=== PATIENT | female | born 1935 | race Caucasian/White ===

== ENCOUNTER → 2017-07-31 11:37 | Outpatient (CLI) | payer MEDICARE, SELFPAY | PROVIDERS: PCP Internal Medicine; Visit Provider Obstetrics & Gynecology | DX: R30.0 Dysuria (principal) | CPT/HCPCS: 87086; 87186 ==

== ENCOUNTER → 2017-08-12 12:22 | Outpatient (CLI) | payer MEDICARE, SELFPAY ==
[2017-08-12 12:32] LABS: RBC Urine None Seen (0-5/HPF)
[2017-08-12 12:51] LABS: Appearance Urine UA SL CLOUDY; Bilirubin Urine UA NEGATIVE (NEGATIVE); Color Urine UA YELLOW; Glucose Urine UA NEGATIVE (Normal); Ketones Urine UA NEGATIVE (NEGATIVE); Leukocyte Esterase Urine UA 1+ (NEGATIVE); Nitrite Urine UA Negative (Negative); Occult Blood Urine UA NEGATIVE (Negative); Protein Urine UA TRACE (Negative); Urobilinogen Urine UA 0.2 E.U./dL (0.2); pH Urine UA 6.5 (4.5-8.0)
[2017-08-12 12:58] LABS: Bacteria Urine Moderate (10-30); Culture Indicated Urine Cult Not Indicated; Squamous Epithelial Cell Urine 10-30 /HPF; WBC Urine 10-30/HPF (0-5/HPF)
== END ==
PROVIDERS: PCP Internal Medicine; Visit Provider Obstetrics & Gynecology
DX: R30.0 Dysuria (principal)
CPT/HCPCS: 81001

== ENCOUNTER → 2017-08-13 16:33 | Outpatient (CLI) | payer MEDICARE, SELFPAY | PROVIDERS: PCP Internal Medicine; Visit Provider Obstetrics & Gynecology | DX: R30.0 Dysuria (principal) | CPT/HCPCS: 87086 ==

== ENCOUNTER → 2017-12-12 14:23 | Outpatient (CLI) | payer MEDICARE, SELFPAY ==
[2017-12-12 14:31] LABS: Bacteria Urine None Seen; RBC Urine None Seen (0-5/HPF)
[2017-12-12 15:08] LABS: Hemoglobin A1C% w Est Avg Glu 6.4 % (4.0-6.0)
[2017-12-12 15:19] LABS: Appearance Urine UA CLOUDY; Bilirubin Urine UA NEGATIVE (NEGATIVE); Color Urine UA ORANGE; Glucose Urine UA 1+ g/dL (Normal); Ketones Urine UA TRACE (NEGATIVE); Leukocyte Esterase Urine UA 2+ (NEGATIVE); Nitrite Urine UA POSITIVE (Negative); Occult Blood Urine UA TRACE-LYSED (Negative); Protein Urine UA 3+ (Negative); pH Urine UA 6.5 (4.5-8.0)
[2017-12-12 15:20] LABS: Culture Indicated Urine Cult Not Indicated; Squamous Epithelial Cell Urine 10-30 /HPF; WBC Urine 30-100/HPF (0-5/HPF)
[2017-12-12 15:24] LABS: Blood Urea Nitrogen 21 mg/dL (7-17); Calcium 9.6 mg/dL (8.4-10.2); Carbon Dioxide 29 mmol/L (22-32); Chloride 99 mmol/L (98-107); Estimated Glomerular Filt Rate 53.3 mL/min (>60); Glucose 198 mg/dL (80-110); HEMOLYSIS < 15 (0-50); Potassium 3.8 mmol/L (3.4-5.1); Sodium 142 mmol/L (137-145)
[2017-12-12 15:39] LABS: Free T4, Direct Thyroxine 1.48 ng/dL (0.78-2.19)
[2017-12-12 15:53] LABS: Thyroid Stimulating Hormone 1.28 uIU/mL (0.47-4.68)
== END ==
PROVIDERS: PCP Internal Medicine; Visit Provider Internal Medicine
DX: E11.9 Type 2 diabetes mellitus without complications (principal); I10 Essential (primary) hypertension; E03.9 Hypothyroidism, unspecified; R30.0 Dysuria
CPT/HCPCS: 36415; 80048; 81001; 83036; 84439; 84443

== ENCOUNTER → 2018-01-02 16:34 | Outpatient (CLI) | payer MEDICARE, SELFPAY ==
[2018-01-02 18:53] LABS: Appearance Urine UA CLOUDY; Bilirubin Urine UA NEGATIVE (NEGATIVE); Glucose Urine UA TRACE g/dL (Normal); Ketones Urine UA TRACE (NEGATIVE); Leukocyte Esterase Urine UA 2+ (NEGATIVE); Nitrite Urine UA POSITIVE (Negative); Occult Blood Urine UA 2+ (Negative); Protein Urine UA 3+ (Negative)
[2018-01-02 18:57] LABS: Color Urine UA ORANGE; RBC Urine 5-10/HPF (0-5/HPF)
[2018-01-02 18:58] LABS: Bacteria Urine Many (>30); Culture Indicated Urine Specimen Cultured; Squamous Epithelial Cell Urine 0-1 /HPF; WBC Urine 30-100/HPF (0-5/HPF)
== END ==
PROVIDERS: PCP Internal Medicine; Visit Provider Internal Medicine
DX: R39.9 Unspecified symptoms and signs involving the genitourinary system (principal)
CPT/HCPCS: 81001; 87077; 87086; 87186

== ENCOUNTER → 2018-01-25 12:54 | Outpatient (CLI) | payer MEDICARE, SELFPAY | PROVIDERS: PCP Internal Medicine; Visit Provider Physician Assistant | DX: N39.0 Urinary tract infection, site not specified (principal) | CPT/HCPCS: 87077; 87086; 87186 ==

== ENCOUNTER → 2018-02-11 14:06 | Outpatient (CLI) | payer MEDICARE, SELFPAY ==
[2018-02-11 14:09] LABS: RBC Urine None Seen (0-5/HPF)
[2018-02-11 16:19] LABS: Appearance Urine UA CLOUDY; Bilirubin Urine UA NEGATIVE (NEGATIVE); Color Urine UA ORANGE; Glucose Urine UA TRACE g/dL (Normal); Ketones Urine UA NEGATIVE (NEGATIVE); Leukocyte Esterase Urine UA 1+ (NEGATIVE); Nitrite Urine UA POSITIVE (Negative); Occult Blood Urine UA 1+ (Negative); Protein Urine UA 2+ (Negative); Specific Gravity Urine UA 1.025 (1.000-1.035); Urobilinogen Urine UA 0.2 E.U./dL (0.2)
[2018-02-11 16:43] LABS: Squamous Epithelial Cell Urine 0-1 /HPF; WBC Urine 30-100/HPF (0-5/HPF)
[2018-02-11 16:44] LABS: Bacteria Urine Moderate (10-30); Calcium Oxalate Crystals Urine Moderate; Culture Indicated Urine Specimen Cultured
== END ==
PROVIDERS: PCP Internal Medicine; Visit Provider Obstetrics & Gynecology
DX: R30.0 Dysuria (principal)
CPT/HCPCS: 81001; 87077; 87086; 87186

== ENCOUNTER → 2018-06-05 13:44 | Outpatient (CLI) | payer MEDICARE, SELFPAY ==
[2018-06-05 14:24] LABS: Appearance Urine UA SL CLOUDY; Bilirubin Urine UA NEGATIVE (NEGATIVE); Glucose Urine UA TRACE g/dL (Negative); Ketones Urine UA NEGATIVE (NEGATIVE); Leukocyte Esterase Urine UA 1+ (NEGATIVE); Nitrite Urine UA POSITIVE (Negative); Occult Blood Urine UA TRACE-INTACT (Negative); Protein Urine UA 3+ (Negative); Specific Gravity Urine UA 1.025 (1.000-1.035)
[2018-06-05 14:32] LABS: Color Urine UA OTHER
[2018-06-05 14:33] LABS: Amorphous Sediment Urine 1+; Bacteria Urine Moderate (10-30); Culture Indicated Urine Specimen Cultured; Mucus Urine 1+ (Negative); RBC Urine 0-1/HPF (0-5/HPF); Squamous Epithelial Cell Urine 1-5 /HPF; Transitional Epi Cells Urine 0-1/HPF (0-5/HPF); WBC Urine 30-100/HPF (0-5/HPF)
== END ==
PROVIDERS: PCP Internal Medicine; Visit Provider Internal Medicine
DX: R30.0 Dysuria (principal)
CPT/HCPCS: 81001; 87077; 87086; 87186

== ENCOUNTER → 2018-06-27 15:30 | Outpatient (CLI) | payer MEDICARE, SELFPAY ==
[2018-06-27 16:16] LABS: Hemoglobin A1C% w Est Avg Glu 5.8 % (4.0-6.0)
[2018-06-27 16:42] LABS: Blood Urea Nitrogen 24 mg/dL (7-17); Calcium 9.8 mg/dL (8.4-10.2); Carbon Dioxide 25 mmol/L (22-32); Chloride 101 mmol/L (98-107); Estimated Glomerular Filt Rate 53.3 mL/min (>60); Glucose 133 mg/dL (80-110); HEMOLYSIS 49 (0-50); Potassium 4.6 mmol/L (3.4-5.1); Sodium 139 mmol/L (137-145)
== END ==
PROVIDERS: PCP Internal Medicine; Visit Provider Internal Medicine
DX: E11.65 Type 2 diabetes mellitus with hyperglycemia (principal)
CPT/HCPCS: 36415; 80048; 83036

== ENCOUNTER 2018-07-25 12:45 | Emergency (ER) | payer MEDICARE, SELFPAY ==
[2018-07-25 13:00] VITALS: BP 142/81; PULSE 97; RESP 18; TEMP 36.9; O2SAT 98
--- NOTE | 2018-07-25 13:09 | DI.RAD.S_ITS ---
PROCEDURE: XR LUMBAR SPINE 2-3V INDICATIONS: fall TECHNIQUE: 3 views of the lumbar spine were acquired. COMPARISON: [facility], , L-SPINE WITHOUT CONTRAST, 09/04/2016, 15:44. FINDINGS: Bones: 5 [id number] vertebrae are present. There is levoscoliosis of the thoracolumbar spine centered at L2-L3. There is grade 2 anterolisthesis at L4-5 measuring approximately 9 mm although the L5 endplate is not well visualized. There is also mild grade 1 anterolisthesis at L5-S1. This appears slightly increased compared to the prior MRI. There is multilevel degenerative disc disease including moderate degeneration at L4-5. Multilevel facet arthropathy is also demonstrated most prominent in the lower lumbar spine at L4-5. No vertebral body compression fractures. No suspicious bony lesions. Soft tissues: Overlying bowel gas pattern is normal. No suspicious soft tissue calcifications. IMPRESSION: 1. No definite fractures identified. 2. Grade 2 anterolisthesis at L4-5 appears slightly increased from the prior study. Mild grade 1 anterolisthesis at L5-S1 appears similar to the prior study. 3. Multilevel degenerative disc disease and facet arthropathy redemonstrated most prominent at L4-5. Dictated by: Kwaku Ball M.D. on 07/25/2018 at 14:12 Approved by: Kwaku Ball M.D. on 07/25/2018 at 14:21
--- NOTE | 2018-07-25 13:09 | DI.RAD.S_ITS ---
PROCEDURE: XR THORACIC SPINE 2V INDICATIONS: fall TECHNIQUE: 3 views of the thoracic spine were acquired. COMPARISON: None. FINDINGS: Bones: Evaluation limited by motion artifact on the lateral projection. No definite fractures or subluxation. There is mild multilevel degenerative disc disease throughout the thoracic spine. No suspicious bony lesions. 12 pairs of ribs are noted, and appear intact where visualized. Soft tissues: No paravertebral stripe thickening. IMPRESSION: 1. Slightly limited study demonstrates no definite fracture. Dictated by: Kwaku Ball M.D. on 07/25/2018 at 14:10 Approved by: Kwaku Ball M.D. on 07/25/2018 at 14:12
--- NOTE | 2018-07-25 13:09 | DI.RAD.S_ITS ---
PROCEDURE: XR CHEST 2V INDICATIONS: fall TECHNIQUE: 2 views of the chest were acquired. COMPARISON: [facility], , CHEST 1 VIEW, 09/26/2016, 8:01. FINDINGS: Surgical changes and devices: None. Lungs and pleura: Lungs are clear. No pleural effusions or pneumothorax. Mediastinum: Mediastinal contours are normal. Heart size is normal. Bones and chest wall: No suspicious bony abnormalities. No displaced fracture identified. Soft tissues appear unremarkable. IMPRESSION: 1. No definite acute traumatic abnormality. Dictated by: Kwaku Ball M.D. on 07/25/2018 at 14:22 Approved by: Kwaku Ball M.D. on 07/25/2018 at 14:22
--- NOTE | 2018-07-25 13:16 | ED.BACK ---
HPI - Back Pain/Injury <Madelaine Potts, SENIOR DIRECTOR [employer] - Last Filed: 07/25/18 15:35> General Chief Complaint: Back Pain/Injury Stated Complaint: fall week a ago, back and R side pain now,worse Time Seen by Provider: 07/25/18 13:00 Source: patient and family Mode of arrival: ambulatory Limitations: no limitations History of Present Illness HPI Narrative: The patient is is an 10-year-old female presents with for chief complaint of back and right side pain since a fall at least 1 week ago. She states she is not exactly sure of the date she fell, but knows it was before the . She did not hit her head. She denies any loss of consciousness. She feels as though her fall was related to her neuropathy which is chronic and related to her diabetes. She states that her pain is in the lower right side of her back. She is also complaining of dysuria and urgency. She denies any incontinence of bowel or bladder. She denies any new numbness. She states she has been taking her oxycodone as well as her Tylenol threes which have been helping with the pain. Pain is worse with motion and twisting. It is improved with rest. The pain does not radiate anywhere. Related Data Home Medications Medication Instructions Recorded Confirmed Calcium Carbonate/Vitamin D 1 tab PO BID #0 06/25/11 07/01/18 (#CALCIUM 600 W/VITAMIN D) VITAMIN B COMPLEX 1 cap PO Q DAY #0 06/25/11 07/01/18 diphenhydramine 25 mg capsule 25 mg PO BEDTIME PRN 09/13/17 07/01/18 docusate sodium 50 mg capsule 50 mg PO DAILY 09/13/17 07/01/18 Previous Rx's Medication Instructions Recorded Glucose: Home Monitoring Kit kit #1 11/18/12 Diabetic Shoes ea #1 08/02/16 clobetasol 0.05 % topical cream 1 applictn TOP BIDP PRN #45 gram 09/05/17 CMP Estrial 0.2? See Rx Instructions .ROUTE 09/06/17 .COMPLEX #30 gram estradiol 0.01% (0.1 mg/gram) 0.1 % VAG DAILY #42.5 gram 09/06/17 vaginal cream Glucose: Test Strips #150 each 12/03/18 metformin 500 mg tablet 500 mg PO BID #60 tab 03/12/18 atorvastatin 40 mg tablet 40 mg PO QDAY #90 tab 03/20/18 levothyroxine 50 mcg tablet 50 mcg PO QAM #90 tab 03/20/18 acetaminophen 300 mg-codeine 30 mg 1 - 2 tab PO Q4H PRN #180 tab 05/05/18 tablet Lancets #250 each 05/06/18 nitrofurantoin 100 mg PO BID #60 cap 06/06/18 monohydrate/macrocrystals 100 mg capsule oxycodone 5 mg tablet 5 mg PO Q4-6H PRN #90 tab 07/01/18 cyclobenzaprine 5 mg tablet 5 mg PO TID PRN #90 tab 07/24/18 eszopiclone 3 mg tablet 3 mg PO BEDTIME PRN #30 tab 07/24/18 cyclobenzaprine 5 mg PO TID PRN #30 tab 07/25/18 nitrofurantoin macrocrystal 100 mg PO BID #20 cap 07/25/18 Allergies Allergy/AdvReac Type Severity Reaction Status Date / Time ciprofloxacin [CIPROFLOXACIN] Allergy Intermediate LEG Verified 07/01/18 13:50 PAIN/SWELLING adhesive [ADHESIVE] Allergy Mild TAPE Verified 07/01/18 13:50 bacitracin Allergy Mild Verified 07/01/18 13:50 [From NEOSPORIN + PAIN RELIEF] neomycin Allergy Mild Verified 07/01/18 13:50 [From NEOSPORIN + PAIN RELIEF] polymyxin B Allergy Mild Verified 07/01/18 13:50 [From NEOSPORIN + PAIN RELIEF] pramoxine Allergy Mild Verified 07/01/18 13:50 [From NEOSPORIN + PAIN RELIEF] Sulfa (Sulfonamide Allergy Mild Verified 07/01/18 13:50 Antibiotics) [SULFA (SULFONAMIDE ANTIBIOTICS)] meclizine [MECLIZINE] Allergy Unknown Verified 07/01/18 13:50 NSAIDS (Non-Steroidal Allergy Unknown Verified 07/01/18 13:50 Anti-Inflamma [NSAIDS (NON-STEROIDAL ANTI-INFLAMMA] quetiapine [QUETIAPINE] AdvReac Intermediate SHAKY, Verified 07/01/18 13:50 UNWELL amoxicillin [AMOXICILLIN] AdvReac Mild SENSE OF Verified 07/01/18 13:50 DOOM, clavulanic acid AdvReac Mild SENSE OF Verified 07/01/18 13:50 [CLAVULANIC ACID] DOOM, Review of Systems <Madelaine Potts [facility] - Last Filed: 07/25/18 15:35> Review of Systems GENERAL: Denies chills, fatigue, malaise, fever, sweats. HEENT: Denies sinus pain, ear pain, sore throat, difficulty swallowing, dizziness. RESPIRATORY: Denies dyspnea, cough, wheezing, hemoptysis, sputum. CARDIOVASCULAR: Denies chest pain, palpitations, orthopnea, edema, GASTROINTESTINAL: Denies nausea, vomiting, abdominal pain, diarrhea, constipation, melena. : Denies dysuria, frequency, incontinence, hematuria, urinary retention. MUSCULOSKELETAL: See HPI SKIN: Denies rash, skin lesions, or other NEUROLOGIC: See HPI PSYCHIATRIC: No concerning psychosocial issues. 12 point review of systems is negative except for those stated above PFSH <Madelaine Potts [facility] - Last Filed: 07/25/18 15:35> Social History Smoking Status: Never smoker Exam <Madelaine Potts [facility] - Last Filed: 07/25/18 15:35> Narrative Exam Narrative: GENERAL: This is a well-nourished, well-developed patient, moving gingerly HEAD: Atraumatic. Normocephalic. No temporal or scalp tenderness. EYES: Pupils equal round and reactive. Extraocular motions intact. No scleral icterus. No injection or drainage. ENT: Nose without bleeding, purulent drainage or septal hematoma. Throat without erythema, tonsillar hypertrophy or exudate. Uvula midline. Airway patent. NECK: Trachea midline. No JVD or lymphadenopathy. Supple, nontender, no meningeal signs. CARDIOVASCULAR: Regular rate and rhythm without murmurs, gallops, or rubs. RESPIRATORY: Clear to auscultation. Breath sounds equal bilaterally. No wheezes, rales, or rhonchi. No cough. No increased respiratory effort. GASTROINTESTINAL: Abdomen soft, non-tender, nondistended. No hepato-splenomegaly, or palpable masses. No guarding. Active bowel sounds. EXTREMITIES: No clubbing, cyanosis, or edema. No joint tenderness, effusion, or edema noted. Strength is equal upper and lower extremities bilaterally. BACK: No pain to C-spine or spinal palpation. Nontender without deformity or crepitance. Pain to palpation paraspinal muscles right side lumbar spine SKIN: No rash or erythema. No erythema ecchymosis or rash or abrasion noted right lower back Initial Vital Signs Initial Vital Signs: Vital Signs Temperature 98.4 F 07/25/18 13:00 Pulse Rate 97 H 07/25/18 13:00 Respiratory Rate 18 07/25/18 13:00 Blood Pressure 142/81 H 07/25/18 13:00 Pulse Oximetry 98 07/25/18 13:00 <Mary Rosa DO - Last Filed: 07/26/18 15:24> Initial Vital Signs Initial Vital Signs: Vital Signs Temperature 98.4 F 07/25/18 13:00 Pulse Rate 97 H 07/25/18 13:00 Respiratory Rate 18 07/25/18 13:00 Blood Pressure 142/81 H 07/25/18 13:00 Pulse Oximetry 98 07/25/18 13:00 Course <SHIRLEY Benedict - Last Filed: 07/25/18 15:35> Orders Ordered: Discontinued Medications Cyclobenzaprine HCl (Flexeril) 5 mg PO NOW ONE Stop: 07/25/18 13:43 Last Admin: 07/25/18 14:10 Dose: 5 mg Vital Signs - 8 hr 07/25/18 13:00 07/25/18 15:19 Temperature 98.4 F Pulse Rate 97 H 91 H Respiratory Rate 18 16 Blood Pressure 142/81 H Blood Pressure [Right Arm] 113/66 Pulse Oximetry 98 100 <Mary Rosa DO - Last Filed: 07/26/18 15:24> Orders Ordered: Discontinued Medications Cyclobenzaprine HCl (Flexeril) 5 mg PO NOW ONE Stop: 07/25/18 13:43 Last Admin: 07/25/18 14:10 Dose: 5 mg Vital Signs - 8 hr 07/25/18 13:00 07/25/18 15:19 Temperature 98.4 F Pulse Rate 97 H 91 H Respiratory Rate 18 16 Blood Pressure 142/81 H Blood Pressure [Right Arm] 113/66 Pulse Oximetry 98 100 MDM - Back Pain/Injury <SHIRLEY Benedict - Last Filed: 07/25/18 15:35> Lab Data Lab Results 07/25/18 Range/Units 13:40 Urine Color Yellow Urine Appearance Cloudy Urine pH 5.5 (4.5-8.0) Ur Specific [place] 1.025 (1.000-1.035) Urine Protein 3+ H (Negative) Urine Glucose (UA) Trace H (Negative) g/dL Urine Ketones Trace H (NEGATIVE) Urine Occult Blood 2+ H (Negative) Urine Nitrate Positive H (Negative) Urine Bilirubin 1+ H (NEGATIVE) Urine Ictotest Negative (Negative) Urine Urobilinogen 1.0 (0.2) E.U./dL Ur Leukocyte Esterase 2+ H (NEGATIVE) Urine RBC 1-5/hpf (0-5/HPF) Urine WBC >100/hpf H (0-5/HPF) Ur Squamous Epith Cells 1-5 /hpf (0-5/HPF) Calcium Oxalate Crystal Few H Urine Bacteria Few (2-10) H (None) Ur Culture Indicated? Specimen cultured Imaging Data Chest x-ray: Radiologist's impression: [address] [address] XRay Report Signed Patient: Anita Bellleen KMR#: [id number] : 1935cct:[id number] Age/Sex: 82 / FDate of Service: 07/25/18 Loc: ED Accession Number: [id number] Procedure: XR chest 2V Ordering Provider: Madelaine Potts PROCEDURE: XR CHEST 2V INDICATIONS: fall TECHNIQUE: 2 views of the chest were acquired. COMPARISON: [facility], , CHEST 1 VIEW, 09/26/2016, 8:01. FINDINGS: Surgical changes and devices: None. Lungs and pleura: Lungs are clear. No pleural effusions or pneumothorax. Mediastinum: Mediastinal contours are normal. Heart size is normal. Bones and chest wall: No suspicious bony abnormalities. No displaced fracture identified. Soft tissues appear unremarkable. IMPRESSION: 1. No definite acute traumatic abnormality. Dictated by: Kwaku Ball M.D. on 07/25/2018 at 14:22 Approved by: Kwaku Ball M.D. on 07/25/2018 at 14:22 Lumbar x-ray: Radiologist's impression: Crystal Bell K 82 F [address] [address] XRay Report Signed Patient: BellCrystal KMR#: [id number] : 1935cct:[id number] Age/Sex: 82 / FDate of Service: 07/25/18 Loc: ED Accession Number: [id number] Procedure: XR lumbar spine 2-3V Ordering Provider: Madelaine Potts PROCEDURE: XR LUMBAR SPINE 2-3V INDICATIONS: fall TECHNIQUE: 3 views of the lumbar spine were acquired. COMPARISON: [facility], , L-SPINE WITHOUT CONTRAST, 09/04/2016, 15:44. FINDINGS: Bones: 5 [id number]-[id number]-xllzzzs vertebrae are present. There is levoscoliosis of the thoracolumbar spine centered at L2-L3. There is grade 2 anterolisthesis at L4-5 measuring approximately 9 mm although the L5 endplate is not well visualized. There is also mild grade 1 anterolisthesis at L5-S1. This appears slightly increased compared to the prior MRI. There is multilevel degenerative disc disease including moderate degeneration at L4-5. Multilevel facet arthropathy is also demonstrated most prominent in the lower lumbar spine at L4-5. No vertebral body compression fractures. No suspicious bony lesions. Soft tissues: Overlying bowel gas pattern is normal. No suspicious soft tissue calcifications. IMPRESSION: 1. No definite fractures identified. 2. Grade 2 anterolisthesis at L4-5 appears slightly increased from the prior study. Mild grade 1 anterolisthesis at L5-S1 appears similar to the prior study. 3. Multilevel degenerative disc disease and facet arthropathy redemonstrated most prominent at L4-5. Dictated by: Kwaku Ball M.D. on 07/25/2018 at 14:12 Approved by: Kwaku Ball M.D. on 07/25/2018 at 14:21 T spine x-ray: Radiologist's impression: Crystal Bell K 82 F 1935 [place] [address] XRay Report Signed Patient: Crystal Bell KMR#: [id number] : 8Acct:[id number] Age/Sex: 82 / FDate of Service: 07/25/18 Loc: ED Accession Number: [id number] Procedure: XR thoracic spine 2V Ordering Provider: Katlyn,Madelaine [employer]IOR [employer] PROCEDURE: XR THORACIC SPINE 2V INDICATIONS: fall TECHNIQUE: 3 views of the thoracic spine were acquired. COMPARISON: None. FINDINGS: Bones: Evaluation limited by motion artifact on the lateral projection. No definite fractures or subluxation. There is mild multilevel degenerative disc disease throughout the thoracic spine. No suspicious bony lesions. 12 pairs of ribs are noted, and appear intact where visualized. Soft tissues: No paravertebral stripe thickening. IMPRESSION: 1. Slightly limited study demonstrates no definite fracture. Dictated by: Kwaku Ball M.D. on 07/25/2018 at 14:10 Approved by: Kwaku Ball M.D. on 07/25/2018 at 14:12 [facility] Narrative Medical decision making narrative: The patient is an 82-year-old female who presents with chief complaint of back pain. She is at least a week out of a fall, which she states was due to her neuropathy. She denies any red flag symptoms of incontinence of bowel, incontinence of bladder or numbness. Her x-rays showed no acute fracture, we did discuss degenerative changes that are worsening. She does have a UTI, so I will start Macrobid. She states she has not taken that for several months and her last culture show susceptibility. I discussed at length return precautions of incontinence male, incontinence of bladder, numbness or neurological concerns. Encouraged follow-up with primary care provider. She remains nontoxic appearing and hemodynamically stable throughout her stay in the emergency department. She did not have any questions or concerns on discharge. Urine culture is pending at this time. <Mary Rosa, DO - Last Filed: 07/26/18 15:24> Lab Data Lab Results 07/25/18 Range/Units 13:40 Urine Color Yellow Urine Appearance Cloudy Urine pH 5.5 (4.5-8.0) Ur Specific [place] 1.025 (1.000-1.035) Urine Protein 3+ H (Negative) Urine Glucose (UA) Trace H (Negative) g/dL Urine Ketones Trace H (NEGATIVE) Urine Occult Blood 2+ H (Negative) Urine Nitrate Positive H (Negative) Urine Bilirubin 1+ H (NEGATIVE) Urine Ictotest Negative (Negative) Urine Urobilinogen 1.0 (0.2) E.U./dL Ur Leukocyte Esterase 2+ H (NEGATIVE) Urine RBC 1-5/hpf (0-5/HPF) Urine WBC >100/hpf H (0-5/HPF) Ur Squamous Epith Cells 1-5 /hpf (0-5/HPF) Calcium Oxalate Crystal Few H Urine Bacteria Few (2-10) H (None) Ur Culture Indicated? Specimen cultured Discharge Plan Departure Patient Disposition: Home Clinical Impression: Acute UTI, Fall from ground level Back pain Qualifiers: Back pain location: low back pain Chronicity: acute Back pain laterality: right Sciatica presence: without sciatica Qualified Code(s): M54.5 - Low back pain Discharge Date/Time: 07/25/18 15:28 Interventions: ED Discharge Assessment Last Done: 07/25/18 15:27 Instructions: DI for Low Back Pain, DI for Urinary Tract Infection (UTI), DI for Back Spasm Activity Restrictions/Additional Instructions: Your x-rays came back with no new fractures or Urology. You do have a UTI. I am starting treatment with an antibiotic. I have also given you prescription for some Flexeril, which have used before. Be aware it can be sedating. Please monitor for any incontinence of bowel, incontinence of bladder or numbness. Please be evaluated if any of these occur. Please also monitor for worsening urinary symptoms, flank pain and fever. Please be evaluated if any of these occur. Please come back to emergency department for any acute concerns. Please follow up with primary care provider. Prescriptions: New nitrofurantoin macrocrystal 100 mg capsule 100 mg PO BID Qty: 20 RF: 0 cyclobenzaprine 5 mg tablet 5 mg PO TID PRN (Reason: muscle spasm) Qty: 30 RF: 0 No Action Calcium Carbonate/Vitamin D (#CALCIUM 600 W/VITAMIN D) 1 tab PO BID Qty: 0 RF: 0 VITAMIN B COMPLEX 1 cap PO Q DAY Qty: 0 RF: 0 Glucose: Home Monitoring Kit Qty: 1 RF: 0 Diabetic Shoes Qty: 1 RF: PRN clobetasol [Temovate] 0.05 % cream 1 applictn TOP BIDP PRN (Reason: rash) Qty: 45 RF: 11 estradiol [Estrace] 0.01 % (0.1 mg/gram) cream 0.1 % VAG DAILY Qty: 42.5 RF: 3 CMP Estrial 0.2? See Rx Instructions .ROUTE .COMPLEX Qty: 30 RF: 3 Glucose: Test Strips .Route .MEDSUPPLY Qty: 150 RF: 11 metformin [Glucophage] 500 mg tablet 500 mg PO BID Qty: 60 RF: 11 atorvastatin 40 mg tablet 40 mg PO QDAY Qty: 90 RF: 3 levothyroxine [Synthroid] 50 mcg tablet 50 mcg PO QAM Qty: 90 RF: 3 Lancets .Route .MEDSUPPLY Qty: 250 RF: 11 nitrofurantoin monohyd/m-cryst 100 mg capsule 100 mg PO BID Qty: 60 RF: 0 cyclobenzaprine 5 mg tablet 5 mg PO TID PRN (Reason: muscle spasm) Qty: 90 RF: 0 eszopiclone [Lunesta] 3 mg tablet 3 mg PO BEDTIME PRN (Reason: insomnia) Qty: 30 RF: 0 oxycodone 5 mg tablet 5 mg PO Q4-6H PRN (Reason: pain) Qty: 90 RF: 0 docusate sodium [Stool Softener] 50 mg capsule 50 mg PO DAILY RF: 0 diphenhydramine HCl [Benadryl] 25 mg capsule 25 mg PO BEDTIME PRNRF: 0 acetaminophen-codeine 300-30 mg tablet 1 - 2 tab PO Q4H PRN (Reason: pain) Qty: 180 RF: 0 Referrals: Kurt Kelly MD [Primary Care Provider] - <Mary Rosa DO - Last Filed: 07/26/18 15:24> Cosign ED Attending Soniya Attestation: I was immediately available in the department for consultation. Documentation has been reviewed. I agree with assessment and plan.
--- NOTE | 2018-07-25 13:22 | ED_ITS ---
HPI - Back Pain/Injury <Madelaine Potts, [employer] - Last Filed: 07/25/18 15:35> General Chief Complaint: Back Pain/Injury Stated Complaint: fall week a ago, back and R side pain now,worse Time Seen by Provider: 07/25/18 13:00 Source: patient and family Mode of arrival: ambulatory Limitations: no limitations History of Present Illness HPI Narrative: The patient is is an 10-year-old female presents with for chief complaint of back and right side pain since a fall at least 1 week ago. She states she is not exactly sure of the date she fell, but knows it was before the . She did not hit her head. She denies any loss of consciousness. She feels as though her fall was related to her neuropathy which is chronic and related to her diabetes. She states that her pain is in the lower right side of her back. She is also complaining of dysuria and urgency. She denies any incontinence of bowel or bladder. She denies any new numbness. She states she has been taking her oxycodone as well as her Tylenol threes which have been helping with the pain. Pain is worse with motion and twisting. It is improved with rest. The pain does not radiate anywhere. Related Data Home Medications Medication Instructions Recorded Confirmed Calcium Carbonate/Vitamin D 1 tab PO BID #0 06/25/11 07/01/18 (#CALCIUM 600 W/VITAMIN D) VITAMIN B COMPLEX 1 cap PO Q DAY #0 06/25/11 07/01/18 diphenhydramine 25 mg capsule 25 mg PO BEDTIME PRN 09/13/17 07/01/18 docusate sodium 50 mg capsule 50 mg PO DAILY 09/13/17 07/01/18 Previous Rx's Medication Instructions Recorded Glucose: Home Monitoring Kit kit #1 11/18/12 Diabetic Shoes ea #1 08/02/16 clobetasol 0.05 % topical cream 1 applictn TOP BIDP PRN #45 gram 09/05/17 CMP Estrial 0.2? See Rx Instructions .ROUTE 09/06/17 .COMPLEX #30 gram estradiol 0.01% (0.1 mg/gram) 0.1 % VAG DAILY #42.5 gram 09/06/17 vaginal cream Glucose: Test Strips #150 each 12/03/18 metformin 500 mg tablet 500 mg PO BID #60 tab 03/12/18 atorvastatin 40 mg tablet 40 mg PO QDAY #90 tab 03/20/18 levothyroxine 50 mcg tablet 50 mcg PO QAM #90 tab 03/20/18 acetaminophen 300 mg-codeine 30 mg 1 - 2 tab PO Q4H PRN #180 tab 05/05/18 tablet Lancets #250 each 05/06/18 nitrofurantoin 100 mg PO BID #60 cap 06/06/18 monohydrate/macrocrystals 100 mg capsule oxycodone 5 mg tablet 5 mg PO Q4-6H PRN #90 tab 07/01/18 cyclobenzaprine 5 mg tablet 5 mg PO TID PRN #90 tab 07/24/18 eszopiclone 3 mg tablet 3 mg PO BEDTIME PRN #30 tab 07/24/18 cyclobenzaprine 5 mg PO TID PRN #30 tab 07/25/18 nitrofurantoin macrocrystal 100 mg PO BID #20 cap 07/25/18 Allergies Allergy/AdvReac Type Severity Reaction Status Date / Time ciprofloxacin [CIPROFLOXACIN] Allergy Intermediate LEG Verified 07/01/18 13:50 PAIN/SWELLING adhesive [ADHESIVE] Allergy Mild TAPE Verified 07/01/18 13:50 bacitracin Allergy Mild Verified 07/01/18 13:50 [From NEOSPORIN + PAIN RELIEF] neomycin Allergy Mild Verified 07/01/18 13:50 [From NEOSPORIN + PAIN RELIEF] polymyxin B Allergy Mild Verified 07/01/18 13:50 [From NEOSPORIN + PAIN RELIEF] pramoxine Allergy Mild Verified 07/01/18 13:50 [From NEOSPORIN + PAIN RELIEF] Sulfa (Sulfonamide Allergy Mild Verified 07/01/18 13:50 Antibiotics) [SULFA (SULFONAMIDE ANTIBIOTICS)] meclizine [MECLIZINE] Allergy Unknown Verified 07/01/18 13:50 NSAIDS (Non-Steroidal Allergy Unknown Verified 07/01/18 13:50 Anti-Inflamma [NSAIDS (NON-STEROIDAL ANTI-INFLAMMA] quetiapine [QUETIAPINE] AdvReac Intermediate SHAKY, Verified 07/01/18 13:50 UNWELL amoxicillin [AMOXICILLIN] AdvReac Mild SENSE OF Verified 07/01/18 13:50 DOOM, clavulanic acid AdvReac Mild SENSE OF Verified 07/01/18 13:50 [CLAVULANIC ACID] DOOM, Review of Systems <Madelaine Potts [facility] - Last Filed: 07/25/18 15:35> Review of Systems GENERAL: Denies chills, fatigue, malaise, fever, sweats. HEENT: Denies sinus pain, ear pain, sore throat, difficulty swallowing, dizziness. RESPIRATORY: Denies dyspnea, cough, wheezing, hemoptysis, sputum. CARDIOVASCULAR: Denies chest pain, palpitations, orthopnea, edema, GASTROINTESTINAL: Denies nausea, vomiting, abdominal pain, diarrhea, constipation, melena. : Denies dysuria, frequency, incontinence, hematuria, urinary retention. MUSCULOSKELETAL: See HPI SKIN: Denies rash, skin lesions, or other NEUROLOGIC: See HPI PSYCHIATRIC: No concerning psychosocial issues. 12 point review of systems is negative except for those stated above PFSH <Madelaine Potts [facility] - Last Filed: 07/25/18 15:35> Social History Smoking Status: Never smoker Exam <Madelaine Potts [facility] - Last Filed: 07/25/18 15:35> Narrative Exam Narrative: GENERAL: This is a well-nourished, well-developed patient, moving gingerly HEAD: Atraumatic. Normocephalic. No temporal or scalp tenderness. EYES: Pupils equal round and reactive. Extraocular motions intact. No scleral icterus. No injection or drainage. ENT: Nose without bleeding, purulent drainage or septal hematoma. Throat without erythema, tonsillar hypertrophy or exudate. Uvula midline. Airway patent. NECK: Trachea midline. No JVD or lymphadenopathy. Supple, nontender, no meningeal signs. CARDIOVASCULAR: Regular rate and rhythm without murmurs, gallops, or rubs. RESPIRATORY: Clear to auscultation. Breath sounds equal bilaterally. No wheezes, rales, or rhonchi. No cough. No increased respiratory effort. GASTROINTESTINAL: Abdomen soft, non-tender, nondistended. No hepato- splenomegaly, or palpable masses. No guarding. Active bowel sounds. EXTREMITIES: No clubbing, cyanosis, or edema. No joint tenderness, effusion, or edema noted. Strength is equal upper and lower extremities bilaterally. BACK: No pain to C-spine or spinal palpation. Nontender without deformity or crepitance. Pain to palpation paraspinal muscles right side lumbar spine SKIN: No rash or erythema. No erythema ecchymosis or rash or abrasion noted right lower back Initial Vital Signs Initial Vital Signs: Vital Signs Temperature 98.4 F 07/25/18 13:00 Pulse Rate 97 H 07/25/18 13:00 Respiratory Rate 18 07/25/18 13:00 Blood Pressure 142/81 H 07/25/18 13:00 Pulse Oximetry 98 07/25/18 13:00 <Mary Rosa DO - Last Filed: 07/26/18 15:24> Initial Vital Signs Initial Vital Signs: Vital Signs Temperature 98.4 F 07/25/18 13:00 Pulse Rate 97 H 07/25/18 13:00 Respiratory Rate 18 07/25/18 13:00 Blood Pressure 142/81 H 07/25/18 13:00 Pulse Oximetry 98 07/25/18 13:00 Course <SHIRLEY Benedict - Last Filed: 07/25/18 15:35> Orders Ordered: Discontinued Medications Cyclobenzaprine HCl (Flexeril) 5 mg PO NOW ONE Stop: 07/25/18 13:43 Last Admin: 07/25/18 14:10 Dose: 5 mg Vital Signs - 8 hr 07/25/18 13:00 07/25/18 15:19 Temperature 98.4 F Pulse Rate 97 H 91 H Respiratory Rate 18 16 Blood Pressure 142/81 H Blood Pressure [Right Arm] 113/66 Pulse Oximetry 98 100 <Mary Rosa DO - Last Filed: 07/26/18 15:24> Orders Ordered: Discontinued Medications Cyclobenzaprine HCl (Flexeril) 5 mg PO NOW ONE Stop: 07/25/18 13:43 Last Admin: 07/25/18 14:10 Dose: 5 mg Vital Signs - 8 hr 07/25/18 13:00 07/25/18 15:19 Temperature 98.4 F Pulse Rate 97 H 91 H Respiratory Rate 18 16 Blood Pressure 142/81 H Blood Pressure [Right Arm] 113/66 Pulse Oximetry 98 100 MDM - Back Pain/Injury <SHIRLEY Benedict - Last Filed: 07/25/18 15:35> Lab Data Lab Results 07/25/18 Range/Units 13:40 Urine Color Yellow Urine Appearance Cloudy Urine pH 5.5 (4.5-8.0) Ur Specific [place] 1.025 (1.000-1.035) Urine Protein 3+ H (Negative) Urine Glucose (UA) Trace H (Negative) g/dL Urine Ketones Trace H (NEGATIVE) Urine Occult Blood 2+ H (Negative) Urine Nitrate Positive H (Negative) Urine Bilirubin 1+ H (NEGATIVE) Urine Ictotest Negative (Negative) Urine Urobilinogen 1.0 (0.2) E.U./dL Ur Leukocyte Esterase 2+ H (NEGATIVE) Urine RBC 1-5/hpf (0-5/HPF) Urine WBC >100/hpf H (0-5/HPF) Ur Squamous Epith Cells 1-5 /hpf (0-5/HPF) Calcium Oxalate Crystal Few H Urine Bacteria Few (2-10) H (None) Ur Culture Indicated? Specimen cultured Imaging Data Chest x-ray: Radiologist's impression: [address] [address] XRay Report Signed Patient: Anita Bellleen KMR#: [id number] : 1935cct:[id number] Age/Sex: 82 / FDate of Service: 07/25/18 Loc: ED Accession Number: [id number] Procedure: XR chest 2V Ordering Provider: Madelaine Potts PROCEDURE: XR CHEST 2V INDICATIONS: fall TECHNIQUE: 2 views of the chest were acquired. COMPARISON: [facility], , CHEST 1 VIEW, 09/26/2016, 8:01. FINDINGS: Surgical changes and devices: None. Lungs and pleura: Lungs are clear. No pleural effusions or pneumothorax. Mediastinum: Mediastinal contours are normal. Heart size is normal. Bones and chest wall: No suspicious bony abnormalities. No displaced fracture identified. Soft tissues appear unremarkable. IMPRESSION: 1. No definite acute traumatic abnormality. Dictated by: Kwaku Ball M.D. on 07/25/2018 at 14:22 Approved by: Kwaku Ball M.D. on 07/25/2018 at 14:22 Lumbar x-ray: Radiologist's impression: Crystal Bell K 82 F [address] [address] XRay Report Signed Patient: BellCrystal KMR#: [id number] : 1935cct:[id number] Age/Sex: 82 / FDate of Service: 07/25/18 Loc: ED Accession Number: [id number] Procedure: XR lumbar spine 2-3V Ordering Provider: Madelaine Potts PROCEDURE: XR LUMBAR SPINE 2-3V INDICATIONS: fall TECHNIQUE: 3 views of the lumbar spine were acquired. COMPARISON: [facility], , L-SPINE WITHOUT CONTRAST, 09/04/2016, 15:44. FINDINGS: Bones: 5 [id number] vertebrae are present. There is levoscoliosis of the thoracolumbar spine centered at L2-L3. There is grade 2 anterolisthesis at L4-5 measuring approximately 9 mm although the L5 endplate is not well visualized. There is also mild grade 1 anterolisthesis at L5-S1. This appears slightly increased compared to the prior MRI. There is multilevel degenerative disc disease including moderate degeneration at L4-5. Multilevel facet arthropathy is also demonstrated most prominent in the lower lumbar spine at L4-5. No vertebral body compression fractures. No suspicious bony lesions. Soft tissues: Overlying bowel gas pattern is normal. No suspicious soft tissue calcifications. IMPRESSION: 1. No definite fractures identified. 2. Grade 2 anterolisthesis at L4-5 appears slightly increased from the prior study. Mild grade 1 anterolisthesis at L5-S1 appears similar to the prior study. 3. Multilevel degenerative disc disease and facet arthropathy redemonstrated most prominent at L4-5. Dictated by: Kwaku Ball M.D. on 07/25/2018 at 14:12 Approved by: Kwaku Ball M.D. on 07/25/2018 at 14:21 T spine x-ray: Radiologist's impression: Crystal Bell K 82 F 1935 [place] [address] XRay Report Signed Patient: Crystal Bell KMR#: [id number] : 8Acct:[id number] Age/Sex: 82 / FDate of Service: 07/25/18 Loc: ED Accession Number: [id number] Procedure: XR thoracic spine 2V Ordering Provider: Real,Madelaine [employer]RO[employer] PROCEDURE: XR THORACIC SPINE 2V INDICATIONS: fall TECHNIQUE: 3 views of the thoracic spine were acquired. COMPARISON: None. FINDINGS: Bones: Evaluation limited by motion artifact on the lateral projection. No definite fractures or subluxation. There is mild multilevel degenerative disc disease throughout the thoracic spine. No suspicious bony lesions. 12 pairs of ribs are noted, and appear intact where visualized. Soft tissues: No paravertebral stripe thickening. IMPRESSION: 1. Slightly limited study demonstrates no definite fracture. Dictated by: Kwaku Ball M.D. on 07/25/2018 at 14:10 Approved by: Kwaku Ball M.D. on 07/25/2018 at 14:12 [facility] Narrative Medical decision making narrative: The patient is an 82-year-old female who presents with chief complaint of back pain. She is at least a week out of a fall, which she states was due to her neuropathy. She denies any red flag symptoms of incontinence of bowel, incontinence of bladder or numbness. Her x- rays showed no acute fracture, we did discuss degenerative changes that are worsening. She does have a UTI, so I will start Macrobid. She states she has not taken that for several months and her last culture show susceptibility. I discussed at length return precautions of incontinence male, incontinence of bladder, numbness or neurological concerns. Encouraged follow-up with primary care provider. She remains nontoxic appearing and hemodynamically stable throughout her stay in the emergency department. She did not have any questions or concerns on discharge. Urine culture is pending at this time. <Mary Rosa, DO - Last Filed: 07/26/18 15:24> Lab Data Lab Results 07/25/18 Range/Units 13:40 Urine Color Yellow Urine Appearance Cloudy Urine pH 5.5 (4.5-8.0) Ur Specific [place] 1.025 (1.000-1.035) Urine Protein 3+ H (Negative) Urine Glucose (UA) Trace H (Negative) g/dL Urine Ketones Trace H (NEGATIVE) Urine Occult Blood 2+ H (Negative) Urine Nitrate Positive H (Negative) Urine Bilirubin 1+ H (NEGATIVE) Urine Ictotest Negative (Negative) Urine Urobilinogen 1.0 (0.2) E.U./dL Ur Leukocyte Esterase 2+ H (NEGATIVE) Urine RBC 1-5/hpf (0-5/HPF) Urine WBC >100/hpf H (0-5/HPF) Ur Squamous Epith Cells 1-5 /hpf (0-5/HPF) Calcium Oxalate Crystal Few H Urine Bacteria Few (2-10) H (None) Ur Culture Indicated? Specimen cultured Discharge Plan Departure Patient Disposition: Home Clinical Impression: Acute UTI, Fall from ground level Back pain Qualifiers: Back pain location: low back pain Chronicity: acute Back pain laterality: right Sciatica presence: without sciatica Qualified Code(s): M54.5 - Low back pain Discharge Date/Time: 07/25/18 15:28 Interventions: ED Discharge Assessment Last Done: 07/25/18 15:27 Instructions: DI for Low Back Pain, DI for Urinary Tract Infection (UTI), DI for Back Spasm Activity Restrictions/Additional Instructions: Your x-rays came back with no new fractures or Urology. You do have a UTI. I am starting treatment with an antibiotic. I have also given you prescription for some Flexeril, which have used before. Be aware it can be sedating. Please monitor for any incontinence of bowel, incontinence of bladder or numbness. Please be evaluated if any of these occur. Please also monitor for worsening urinary symptoms, flank pain and fever. Please be evaluated if any of these occur. Please come back to emergency department for any acute concerns. Please follow up with primary care provider. Prescriptions: New nitrofurantoin macrocrystal 100 mg capsule 100 mg PO BID Qty: 20 RF: 0 cyclobenzaprine 5 mg tablet 5 mg PO TID PRN (Reason: muscle spasm) Qty: 30 RF: 0 No Action Calcium Carbonate/Vitamin D (#CALCIUM 600 W/VITAMIN D) 1 tab PO BID Qty: 0 RF: 0 VITAMIN B COMPLEX 1 cap PO Q DAY Qty: 0 RF: 0 Glucose: Home Monitoring Kit Qty: 1 RF: 0 Diabetic Shoes Qty: 1 RF: PRN clobetasol [Temovate] 0.05 % cream 1 applictn TOP BIDP PRN (Reason: rash) Qty: 45 RF: 11 estradiol [Estrace] 0.01 % (0.1 mg/gram) cream 0.1 % VAG DAILY Qty: 42.5 RF: 3 CMP Estrial 0.2? See Rx Instructions .ROUTE .COMPLEX Qty: 30 RF: 3 Glucose: Test Strips .Route .MEDSUPPLY Qty: 150 RF: 11 metformin [Glucophage] 500 mg tablet 500 mg PO BID Qty: 60 RF: 11 atorvastatin 40 mg tablet 40 mg PO QDAY Qty: 90 RF: 3 levothyroxine [Synthroid] 50 mcg tablet 50 mcg PO QAM Qty: 90 RF: 3 Lancets .Route .MEDSUPPLY Qty: 250 RF: 11 nitrofurantoin monohyd/m-cryst 100 mg capsule 100 mg PO BID Qty: 60 RF: 0 cyclobenzaprine 5 mg tablet 5 mg PO TID PRN (Reason: muscle spasm) Qty: 90 RF: 0 eszopiclone [Lunesta] 3 mg tablet 3 mg PO BEDTIME PRN (Reason: insomnia) Qty: 30 RF: 0 oxycodone 5 mg tablet 5 mg PO Q4-6H PRN (Reason: pain) Qty: 90 RF: 0 docusate sodium [Stool Softener] 50 mg capsule 50 mg PO DAILY RF: 0 diphenhydramine HCl [Benadryl] 25 mg capsule 25 mg PO BEDTIME PRNRF: 0 acetaminophen-codeine 300-30 mg tablet 1 - 2 tab PO Q4H PRN (Reason: pain) Qty: 180 RF: 0 Referrals: Kurt Kelly MD [Primary Care Provider] - <Mary Rosa DO - Last Filed: 07/26/18 15:24> Cosign ED Attending Soniya Attestation: I was immediately available in the department for consultation. Documentation has been reviewed. I agree with assessment and plan.
--- NOTE | 2018-07-25 13:23 | PC.NURSE ---
Provider okmeghan'ed patient to take her own valsartan. Pt took medication at this time.
[2018-07-25 13:52] LABS: Appearance Urine UA CLOUDY; Bilirubin Urine UA 1+ (NEGATIVE); Color Urine UA YELLOW; Glucose Urine UA TRACE g/dL (Negative); Ketones Urine UA TRACE (NEGATIVE); Leukocyte Esterase Urine UA 2+ (NEGATIVE); Nitrite Urine UA POSITIVE (Negative); Occult Blood Urine UA 2+ (Negative); Protein Urine UA 3+ (Negative); Specific Gravity Urine UA 1.025 (1.000-1.035); pH Urine UA 5.5 (4.5-8.0)
[2018-07-25] MEDS: CYCLOBENZAPRINE 5 MG TABLET PO (14:10)
[2018-07-25 14:27] LABS: Calcium Oxalate Crystals Urine Few; Ictotest Urine Negative (Negative); RBC Urine 1-5/HPF (0-5/HPF); Squamous Epithelial Cell Urine 1-5 /HPF (0-5/HPF); WBC Urine >100/HPF (0-5/HPF)
[2018-07-25 14:28] LABS: Bacteria Urine Few (2-10); Culture Indicated Urine Specimen Cultured
[2018-07-25 15:19] VITALS: BP 113/66; PULSE 91; RESP 16; O2SAT 100
== END 2018-07-25 15:28 | disposition home or self-care (01) ==
PROVIDERS: Emergency Provider Nurse Practitioner Family; PCP Internal Medicine
DX: N39.0 Urinary tract infection, site not specified (principal); M54.5 Low back pain; W18.30XA Fall on same level, unspecified, initial encounter
CPT/HCPCS: 71046; 72070; 72100; 81001; 87077; 87086; 87186; 99283

== ENCOUNTER → 2018-10-17 13:13 | Outpatient (CLI) | payer MEDICARE, SELFPAY ==
[2018-10-17 14:29] LABS: BUN Creatinine Ratio 27.5 (6-22); Blood Urea Nitrogen 22 mg/dL (7-17); Calcium 10.6 mg/dL (8.4-10.2); Carbon Dioxide 24 mmol/L (22-32); Chloride 103 mmol/L (98-107); Estimated Glomerular Filt Rate > 60.0 mL/min (>60); Glucose 144 mg/dL (80-110); HEMOLYSIS 16 (0-50); Potassium 4.2 mmol/L (3.4-5.1); Sodium 141 mmol/L (137-145)
[2018-10-17 14:44] LABS: Free T4, Direct Thyroxine 1.44 ng/dL (0.78-2.19)
[2018-10-17 14:58] LABS: Thyroid Stimulating Hormone 1.86 uIU/mL (0.47-4.68)
[2018-10-17 19:48] LABS: Hemoglobin A1C% w Est Avg Glu 6.6 % (4.0-6.0)
== END ==
PROVIDERS: PCP Internal Medicine; Visit Provider Internal Medicine
DX: E03.9 Hypothyroidism, unspecified (principal); E11.65 Type 2 diabetes mellitus with hyperglycemia; E21.3 Hyperparathyroidism, unspecified
CPT/HCPCS: 36415; 80048; 83036; 84439; 84443

== ENCOUNTER → 2018-12-02 13:50 | Outpatient (CLI) | payer MEDICARE, SELFPAY ==
[2018-12-02 13:59] LABS: Bacteria Urine None Seen
[2018-12-02 15:24] LABS: Appearance Urine UA CLOUDY; Bilirubin Urine UA NEGATIVE (NEGATIVE); Color Urine UA YELLOW; Glucose Urine UA TRACE g/dL (Negative); Ketones Urine UA NEGATIVE (NEGATIVE); Leukocyte Esterase Urine UA 2+ (NEGATIVE); Nitrite Urine UA POSITIVE (Negative); Occult Blood Urine UA 3+ (Negative); Protein Urine UA 3+ (Negative); Urobilinogen Urine UA 0.2 E.U./dL (0.2)
[2018-12-02 15:28] LABS: Culture Indicated Urine Specimen Cultured; RBC Urine 10-30/HPF (0-5/HPF); WBC Urine 30-100/HPF (0-5/HPF); pH Urine UA 5.5 (4.5-8.0)
== END ==
PROVIDERS: PCP Internal Medicine; Visit Provider Obstetrics & Gynecology
DX: R39.9 Unspecified symptoms and signs involving the genitourinary system (principal)
CPT/HCPCS: 81001; 87077; 87086; 87186

== ENCOUNTER → 2019-02-09 13:48 | Outpatient (CLI) | payer MEDICARE, SELFPAY ==
[2019-02-09 14:57] LABS: Appearance Urine UA CLOUDY; Bilirubin Urine UA NEGATIVE (NEGATIVE); Color Urine UA YELLOW; Glucose Urine UA TRACE g/dL (Negative); Ketones Urine UA NEGATIVE (NEGATIVE); Leukocyte Esterase Urine UA 2+ (NEGATIVE); Nitrite Urine UA POSITIVE (Negative); Occult Blood Urine UA 3+ (Negative); Protein Urine UA 3+ (Negative); Specific Gravity Urine UA 1.015 (1.000-1.035)
[2019-02-09 15:12] LABS: pH Urine UA 6.5 (4.5-8.0)
[2019-02-09 15:13] LABS: Amorphous Sediment Urine 1+; Bacteria Urine Many (>30); Culture Indicated Urine Specimen Cultured; Mucus Urine 2+ (Negative); RBC Urine 1-5/HPF (0-5/HPF); Squamous Epithelial Cell Urine 0-1 /HPF (0-5/HPF); WBC Urine >100/HPF (0-5/HPF)
== END ==
PROVIDERS: Specialist; PCP Internal Medicine; Visit Provider Obstetrics & Gynecology
DX: R30.0 Dysuria (principal); R30.9 Painful micturition, unspecified; Z87.440 Personal history of urinary (tract) infections
CPT/HCPCS: 81001; 87077; 87086; 87186

== ENCOUNTER → 2019-03-12 14:19 | Outpatient (CLI) | payer MEDICARE, SELFPAY ==
[2019-03-12 15:49] LABS: Alanine Aminotransferase 26 IU/L (<35); Albumin 4.5 g/dL (3.5-5.0); Albumin Globulin Ratio 1.2 (1.0-2.8); Alkaline Phosphatase 91 U/L (38-126); Aspartate Aminotransferase 27 IU/L (14-36); BUN Creatinine Ratio 21.8 (6-22); Bilirubin Total 0.8 mg/dL (0.2-1.3); Blood Urea Nitrogen 24 mg/dL (7-17); Calcium 10.6 mg/dL (8.4-10.2); Carbon Dioxide 27 mmol/L (22-32); Chloride 101 mmol/L (98-107); Estimated Glomerular Filt Rate 47.7 mL/min (>60); Globulin 3.7 g/dL (1.7-4.1); Glucose 148 mg/dL (80-110); HEMOLYSIS < 15 (0-50); Potassium 4.9 mmol/L (3.4-5.1); Sodium 141 mmol/L (137-145); Total Protein 8.2 g/dL (6.3-8.2)
[2019-03-12 15:51] LABS: Hemoglobin A1C% w Est Avg Glu 6.9 % (4.0-6.0)
== END ==
PROVIDERS: PCP Internal Medicine; Visit Provider Internal Medicine
DX: E11.29 Type 2 diabetes mellitus with other diabetic kidney complication (principal); E21.3 Hyperparathyroidism, unspecified; R80.9 Proteinuria, unspecified
CPT/HCPCS: 36415; 80053; 83036

== ENCOUNTER → 2020-04-04 17:21 | Outpatient (CLI) | payer MEDICARE, SELFPAY ==
[2020-04-04 18:25] LABS: Add Manual Diff / Slide Review NO; Basophils Absolute Auto 0 /uL (0-100); Basophils Percent Auto 0.4 % (0-2); Eosinophils Absolute Auto 0 /uL (0-450); Eosinophils Percent Auto 0.4 % (2-4); Hematocrit 39.9 % (36-46); Hemoglobin 13.1 g/dL (12.0-16.0); Lymphocytes Absolute Auto 2000 /uL (1100-4500); Lymphocytes Percent Auto 17.7 % (25-40); Mean Corpuscular HGB Conc 32.8 % (30-36); Mean Corpuscular Hemoglobin 33.5 PG (26-34); Mean Corpuscular Volume 102.1 fL (80-100); Monocytes Absolute Auto 800 /uL (0-900); Neutrophils Absolute Auto 8300 /uL (1500-7000); Neutrophils Percent Auto 74.5 % (50-75); Platelet Count 292 X10^3/uL (150-400); Red Blood Cell Count 3.91 X10^6/uL (4.0-5.2); White Blood Cell Count 11.1 X10^3/uL (4.5-11.0)
[2020-04-04 18:40] LABS: Alanine Aminotransferase 7 IU/L (<35); Albumin 4.2 g/dL (3.5-5.0); Albumin Globulin Ratio 1.1 (1.0-2.8); Alkaline Phosphatase 65 U/L (38-126); Aspartate Aminotransferase 17 IU/L (14-36); BUN Creatinine Ratio 27.8 (6-22); Bilirubin Total 0.4 mg/dL (0.2-1.3); Blood Urea Nitrogen 25 mg/dL (7-17); Calcium 12.5 mg/dL (8.4-10.2); Carbon Dioxide 30 mmol/L (22-32); Chloride 100 mmol/L (98-107); Estimated Glomerular Filt Rate 59.9 mL/min (>60); Globulin 3.7 g/dL (1.7-4.1); Glucose 122 mg/dL (80-110); HEMOLYSIS < 15 (0-50); Potassium 4.5 mmol/L (3.4-5.1); Sodium 137 mmol/L (137-145); Total Protein 7.9 g/dL (6.3-8.2)
[2020-04-04 18:43] LABS: Hemoglobin A1C% w Est Avg Glu 6.6 % (4.0-6.0)
== END ==
PROVIDERS: PCP Internal Medicine; Referring Provider Internal Medicine; Visit Provider Internal Medicine
DX: E11.65 Type 2 diabetes mellitus with hyperglycemia (principal); I10 Essential (primary) hypertension; N39.0 Urinary tract infection, site not specified
CPT/HCPCS: 36415; 80053; 83036; 85025

== ENCOUNTER 2020-04-06 15:19 | Observation (INO) | payer MEDICARE, SELFPAY ==
[2020-04-06] VITALS (11 sets, daily range): BP systolic 112–157; BP diastolic 56–79; PULSE 71–100; RESP 17–24; TEMP 36.2–36.4; O2SAT 98–100; BMI 18.1
--- NOTE | 2020-04-06 15:32 | DI.RAD.S_ITS ---
PROCEDURE: XR CHEST 1V INDICATIONS: suspected sepsis TECHNIQUE: One view of the chest was acquired. COMPARISON: [facility], CR, XR CHEST 2V, 07/25/2018, 13:21. FINDINGS: Surgical changes and devices: None. Lungs and pleura: Lungs are clear. No pleural effusions or pneumothorax. Mediastinum: Mediastinal contours appear normal. Heart size is normal. Bones and chest wall: No suspicious bony lesions. Overlying soft tissues appear unremarkable. IMPRESSION: No evidence acute pulmonary process. Dictated by: Lewis Whitney M.D. on 04/06/2020 at 15:59 Approved by: Lewis Whitney M.D. on 04/06/2020 at 15:59
[2020-04-06] MEDS: SODIUM CHLORIDE 0.9% 1,000 ML 250 ML IV (16:25)
[2020-04-06 16:30] LABS: Add Manual Diff / Slide Review NO; Basophils Absolute Auto 100 /uL (0-100); Basophils Percent Auto 0.6 % (0-2); Eosinophils Absolute Auto 100 /uL (0-450); Eosinophils Percent Auto 0.6 % (2-4); Hematocrit 40.6 % (36-46); Lymphocytes Absolute Auto 2200 /uL (1100-4500); Lymphocytes Percent Auto 17.8 % (25-40); Mean Corpuscular Hemoglobin 32.9 PG (26-34); Mean Corpuscular Volume 102.7 fL (80-100); Monocytes Absolute Auto 900 /uL (0-900); Monocytes Percent Auto 7.2 % (3-14); Neutrophils Absolute Auto 8900 /uL (1500-7000); Neutrophils Percent Auto 73.8 % (50-75); Platelet Count 283 X10^3/uL (150-400); Red Blood Cell Count 3.95 X10^6/uL (4.0-5.2); Red Cell Distribution Width 12.9 % (11.6-14.8); White Blood Cell Count 12.1 X10^3/uL (4.5-11.0)
[2020-04-06 16:36] LABS: Prothrombin Time 11.2 SECONDS (10.1-12.7)
[2020-04-06 16:38] LABS: PTT Partial Thromboplastin Tim 28 SECONDS (26.4-36.2)
[2020-04-06 16:41] LABS: Alanine Aminotransferase 9 IU/L (<35); Albumin 4.6 g/dL (3.5-5.0); Alkaline Phosphatase 64 U/L (38-126); Aspartate Aminotransferase 29 IU/L (14-36); BUN Creatinine Ratio 31.1 (6-22); Bilirubin Total 1.2 mg/dL (0.2-1.3); Blood Urea Nitrogen 23 mg/dL (7-17); Carbon Dioxide 24 mmol/L (22-32); Chloride 101 mmol/L (98-107); Estimated Glomerular Filt Rate > 60.0 mL/min (>60); Globulin 4.8 g/dL (1.7-4.1); Glucose 114 mg/dL (80-110); Lipase 78 U/L (23-300); Sodium 135 mmol/L (137-145); Total Protein 9.4 g/dL (6.3-8.2)
[2020-04-06 17:04] LABS: COVID19 -Nasal RAPID Negative (Negative)
[2020-04-06 17:05] LABS: HEMOLYSIS 223 (0-50); Potassium 5.8 mmol/L (3.4-5.1)
[2020-04-06 17:06] LABS: Calcium 11.4 mg/dL (8.4-10.2)
[2020-04-06 17:07] LABS: Appearance Urine UA CLOUDY; Bilirubin Urine UA NEGATIVE (NEGATIVE); Color Urine UA YELLOW; Glucose Urine UA NEGATIVE (Negative); Ketones Urine UA 2+ (NEGATIVE); Leukocyte Esterase Urine UA 2+ (NEGATIVE); Nitrite Urine UA POSITIVE (Negative); Occult Blood Urine UA 3+ (Negative); Protein Urine UA 2+ (Negative); RBC Urine None Seen (0-5/HPF); Specific Gravity Urine UA 1.025 (1.000-1.035); Urobilinogen Urine UA 0.2 E.U./dL (0.2)
[2020-04-06 17:12] LABS: pH Urine UA 5.5 (4.5-8.0)
[2020-04-06 17:13] LABS: Bacteria Urine Many (>30); Calcium Oxalate Crystals Urine Few; Culture Indicated Urine Specimen Cultured; WBC Urine >100/HPF (0-5/HPF)
[2020-04-06 17:49] LABS: Procalcitonin 0.22 ng/mL (<0.5)
[2020-04-06 18:22] LABS: Reflexed Lactate in 2 Hours Y
--- NOTE | 2020-04-06 18:27 | ED_ITS ---
HPI - General Adult General Chief complaint: Weakness Stated complaint: sent by Dr Kelly Time Seen by Provider: 04/06/20 17:56 Source: patient and family Mode of arrival: Wheelchair Limitations: no limitations History of Present Illness HPI narrative: Patient is a 84-year-old female who came in for evaluation of po tential urinary tract infection and fatigue and confusion. Patient is here with her daughter. She lives in assisted living facility. She does state that over the past couple days she has had urinary frequency and urgency and burning. She has also been very fatigued. She also states she is having some problems remembering things. Her daughter agrees with all the symptoms. She contacted her primary doctor told her come to the emergency department for evaluation denies any nausea. No vomiting. No change in bowel habits. Related Data Home Medications Medication Instructions Recorded Confirmed docusate sodium 50 mg capsule 50 mg PO DAILY 09/13/17 03/17/19 Previous Rx's Medication Instructions Recorded Glucose: Home Monitoring Kit kit #1 11/18/12 clobetasol 0.05 % topical cream 1 applictn TOP BIDP PRN #45 gram 09/05/17 Lancets #250 each 05/06/18 Glucose: Truplus Lancets #250 each 04/27/19 Disabled Parking #1 each 04/28/19 metformin 500 mg tablet 500 mg PO BID #60 tab 06/24/19 atorvastatin 40 mg tablet 40 mg PO QDAY #90 tab 07/15/19 levothyroxine 50 mcg tablet 50 mcg PO QAM #90 tab 09/16/19 estradiol 0.1 % VAG DAILY #42.5 gram 10/05/19 famotidine 20 mg tablet 10 mg PO BID #90 tab 11/09/19 ascorbate calcium (vitamin C) 500 500 mg PO BID #180 tab 12/17/19 mg tablet cholecalciferol (vitamin D3) 25 2,000 unit PO DAILY #180 cap 12/17/19 mcg (1,000 unit) capsule ferrous sulfate 325 mg (65 mg 325 mg PO BID #180 tab 12/21/19 iron) tablet acetaminophen 325 mg tablet 650 mg PO Q4-6H PRN #180 tab 12/31/19 triamcinolone acetonide 0.1 % 1 applictn TOP QID #80 gram 01/11/20 topical cream diphenhydramine HCl 25 mg capsule 25 mg PO Q4H PRN #90 cap 01/28/20 acetaminophen 300 mg-codeine 30 mg See Rx Instructions PO Q4H PRN 02/26/20 tablet #120 tab Allergies Allergy/AdvReac Type Severity Reaction Status Date / Time ciprofloxacin [CIPROFLOXACIN] Allergy Intermediate LEG Verified 04/06/20 15:31 PAIN/SWELLING adhesive [ADHESIVE] Allergy Mild TAPE Verified 04/06/20 15:31 bacitracin Allergy Mild Verified 04/06/20 15:31 [From NEOSPORIN + PAIN RELIEF] neomycin Allergy Mild Verified 04/06/20 15:31 [From NEOSPORIN + PAIN RELIEF] polymyxin B Allergy Mild Verified 04/06/20 15:31 [From NEOSPORIN + PAIN RELIEF] pramoxine Allergy Mild Verified 04/06/20 15:31 [From NEOSPORIN + PAIN RELIEF] Sulfa (Sulfonamide Allergy Mild Verified 04/06/20 15:31 Antibiotics) [SULFA (SULFONAMIDE ANTIBIOTICS)] meclizine [MECLIZINE] Allergy Unknown Verified 04/06/20 15:31 NSAIDS (Non-Steroidal Allergy Unknown Verified 04/06/20 15:31 Anti-Inflamma [NSAIDS (NON-STEROIDAL ANTI-INFLAMMA] quetiapine [QUETIAPINE] AdvReac Intermediate SHAKY, Verified 04/06/20 15:31 UNWELL amoxicillin [AMOXICILLIN] AdvReac Mild SENSE OF Verified 03/16/19 13:47 DOOM, clavulanic acid AdvReac Mild SENSE OF Verified 03/16/19 13:47 [CLAVULANIC ACID] DOOM, Review of Systems Constitutional Constitutional: Denies fever(s) Cardiovascular Cardiovascular: Denies chest pain and Denies dyspnea Respiratory Respiratory: Denies dyspnea Gastrointestinal Gastrointestinal: Denies abdominal pain, Denies nausea and Denies vomiting Genitourinary Genitourinary: Reports dysuria, Reports urinary frequency and Reports urinary urgency Genitourinary: Reports urinary frequency, Reports dysuria and Reports urinary urgency Musculoskeletal Musculoskeletal: Denies arthralgias and Denies myalgias Integumentary/Breasts Skin/Breast: Denies rash Neurologic Neurologic: Denies behavioral changes Psychiatric Psychiatric: Denies behavioral changes Hematologic/Lymphatic On Anticoagulants: No Allergic/Immunologic Allergic/Immunologic: Denies urticaria Patient History Medical History Acquired hypothyroidism (05/23/11) Aortic stenosis (~09/2016) Chronic pain Controlled diabetes mellitus (10/13/13) Diverticular disease Elevated ferritin level Elevated serum GGT level Esophageal diverticulum, acquired (05/23/11) Essential hypertension (05/23/11) Hyperlipidemia Hyperparathyroidism (10/13/13) 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) Idiopathic peripheral neuropathy (05/21/13) Lumbar canal stenosis Lumbar facet arthropathy Osteoarthritis involving multiple joints on both sides of body Raynaud's phenomenon (05/23/11) Type 2 diabetes mellitus with hyperglycemia (11/18/12) Type 2 diabetes mellitus with microalbuminuria, without long-term current use of insulin (11/17/15) Surgical History History of cataract removal with insertion of prosthetic lens S/P total abdominal hysterectomy and bilateral salpingo-oophorectomy Social History Smoking Status: Never smoker alcohol intake: current Smoking Status: Never smoker alcohol intake frequency: 0-2 drinks per day Substance Use Type: does not use Exam Initial Vital Signs Initial Vital Signs: Vital Signs Temperature 97.1 F L 04/06/20 15:25 Pulse Rate 100 H 04/06/20 15:25 Respiratory Rate 20 04/06/20 15:25 Blood Pressure 123/66 04/06/20 15:25 Pulse Oximetry 100 04/06/20 15:25 Const General: cooperative, comfortable and well developed HENIL Head: normal to inspection and normocephalic Mouth: No moist mucous membranes and mucous membranes abnormal (Dry) Resp Effort & Inspection: normal respiratory effort Cardio Rate: regular rate GI Inspection: non-distended Palpation: soft and No tender Skin Lesions: no lesions Rashes: no rashes Other: Dry skin, tenting on exam Neuro General: patient alert and patient awake Cognition: normal cognition Speech: speech normal Extrem General: capillary refill normal and No edema Psych Appearance: grossly normal and well kempt Course Orders Ordered: ED Orders 04/06/20 15:32 XR chest 1V Stat EKG-12 Lead Stat 04/06/20 15:50 Complete Blood Count AUTO DIFF Stat Comprehensive Metabolic Panel Stat Lactate (Lactic Acid) Stat Lipase Stat Partial Thromboplastin Time Stat Procalcitonin Stat Prothrombin Time INR Stat 04/06/20 16:02 COVID19 Stat 04/06/20 16:17 UA Complete [Urinalysis and Microscopic] Stat Urine Culture Stat 04/06/20 16:27 Blood Culture Stat Acetaminophen (Acetaminophen 325 Mg Tablet) 650 mg PO Q6H PRN PRN Reason: fever or pain Acetaminophen/Codeine Phosphate (Codeine/Acetaminophen 30/300 Tablet) 1 tab PO Q4H PRN PRN Reason: pain Last Admin: 04/06/20 21:30 Dose: 1 tab Documented by: ANNA MARIE Atorvastatin Calcium (Atorvastatin 20 Mg Tablet) 40 mg PO DAILY [facility] Last Admin: 04/06/20 21:30 Dose: 40 mg Documented by: ANNA MARIE Calcium Carbonate (Calcium Carbonate 500 Mg Tab) 1,000 mg PO Q4HR PRN PRN Reason: Dyspepsia Dextrose (Dextrose 50 % In Water 25 Gm/50 Ml Syringe) 25 gm IV PRN PRN PRN Reason: Hypoglycemia Diphenhydramine HCl (Diphenhydramine 25 Mg Tablet) 25 mg PO Q4H PRN PRN Reason: Itching Docusate Sodium (Docusate 100 Mg Capsule) 100 mg PO DAILY [facility] Enoxaparin Sodium (Enoxaparin 30 Mg/0.3 Ml Syringe) 30 mg SUBCUT DAILY [facility] Famotidine (Famotidine 20 Mg Tablet) 10 mg PO BID [facility] Last Admin: 04/06/20 21:30 Dose: 10 mg Documented by: ANNA MARIE Ferrous Sulfate (Ferrous Sulfate 325 Mg Tablet) 325 mg PO BID [facility] Last Admin: 04/06/20 21:30 Dose: 325 mg Documented by: ANNA MARIE Sodium Chloride (Normal Saline 0.9%) 1,000 mls @ 100 mls/hr IV CONT [facility] Last Admin: 04/06/20 21:30 Dose: 100 mls/hr Documented by: ANNA MARIE Insulin Aspart (Insulin Aspart 100 Unit/Ml Insuln Pen) 0 unit SUBCUT ACHS [facility]; Protocol Last Admin: 04/06/20 21:21 Dose: Not Given Documented by: ANNA MARIE Levothyroxine Sodium (Levothyroxine 50 Mcg Tablet) 50 mcg PO 0600 [facility] Last Admin: 04/06/20 21:34 Dose: 50 mcg Documented by: ANNA MARIE Naloxone HCl (Naloxone 0.4 Mg/Ml Vial) 0.2 mg IV Q2MIN PRN PRN Reason: Opiate Reversal Ondansetron HCl (Ondansetron 4 Mg Odt) 4 mg PO Q8HR PRN PRN Reason: Nausea And Vomiting Vitamin D (Cholecalciferol (Vitamin D3) 1,000 Unit Tablet) 2,000 unit PO DAILY [facility] Discontinued Medications Sodium Chloride (Normal Saline 0.9%) 1,000 mls @ 250 mls/hr IV BOLUS ONE Stop: 04/06/20 19:36 Last Admin: 04/06/20 16:25 Dose: 250 mls/hr Documented by: KALINA Ceftriaxone Sodium/Dextrose (Rocephin) 1 gm in 50 mls @ 100 mls/hr IV NOW ONE Stop: 04/06/20 18:31 Last Admin: 04/06/20 18:45 Dose: 100 mls/hr Documented by: KALINA Vital Signs Vital signs: Vital Signs - 8 hr 04/06/20 17:13 04/06/20 17:30 04/06/20 18:00 Pulse Rate 80 73 72 Respiratory Rate 22 22 Blood Pressure 112/56 L 120/58 L Pulse Oximetry 99 99 04/06/20 18:30 04/06/20 19:00 Pulse Rate 74 77 Respiratory Rate 22 Blood Pressure 134/63 Pulse Oximetry 100 100 Medical Decision Making Medical Records Medical records reviewed: Yes I reviewed the patient's medical records. Lab Data Lab results reviewed: Yes I reviewed the patient's lab results. Result diagrams: 04/06/20 15:50 04/06/20 15:50 Labs: Lab Results 04/06/20 04/06/20 04/06/20 Range/Units 15:50 15:50 15:50 WBC 12.1 H (4.5-11.0) X10^3/uL RBC 3.95 L (4.0-5.2) X10^6/uL Hgb 13.0 (12.0-16.0) g/dL Hct 40.6 (36-46) % MCV 102.7 H (80-100) fL MCH 32.9 (26-34) PG MCHC 32.0 (30-36) % RDW 12.9 (11.6-14.8) % Plt Count 283 (150-400) X10^3/uL Neut % (Auto) 73.8 (50-75) % Lymph % (Auto) 17.8 L (25-40) % [place] % (Auto) 7.2 (3-14) % Eos % (Auto) 0.6 L (2-4) % Baso % (Auto) 0.6 (0-2) % Neut # (Auto) 8900 H (9029-9626) /uL Lymph # (Auto) 2200 (4108-1699) /uL [place] # (Auto) 900 (0-900) /uL Eos # (Auto) 100 (0-450) /uL Baso # (Auto) 100 (0-100) /uL PT 11.2 (10.1-12.7) SECONDS INR 1.0 (0.9-1.3) APTT 28 (26.4-36.2) SECONDS Sodium (137-145) mmol/L Potassium (3.4-5.1) mmol/L Chloride (98-107) mmol/L Carbon Dioxide (22-32) mmol/L BUN (7-17) mg/dL Creatinine (0.52-1.04) mg/dL Estimated GFR (>60) mL/min BUN/Creatinine Ratio (6-22) Glucose (80-110) mg/dL Lactate (0.7-2.1) mmol/L Calcium (8.4-10.2) mg/dL Total Bilirubin (0.2-1.3) mg/dL AST (14-36) IU/L ALT (<35) IU/L Alkaline Phosphatase (38-126) U/L Total Protein (6.3-8.2) g/dL Albumin (3.5-5.0) g/dL Globulin (1.7-4.1) g/dL Albumin/Globulin Ratio (1.0-2.8) Lipase (23-300) U/L Procalcitonin 0.22 (<0.5) ng/mL Urine Color Urine Appearance Urine pH (4.5-8.0) Ur Specific [place] (1.000-1.035) Urine Protein (Negative) Urine Glucose (UA) (Negative) g/dL Urine Ketones (NEGATIVE) Urine Occult Blood (Negative) Urine Nitrate (Negative) Urine Bilirubin (NEGATIVE) Urine Urobilinogen (0.2) E.U./dL Ur Leukocyte Esterase (NEGATIVE) Urine RBC (0-5/HPF) Urine WBC (0-5/HPF) Calcium Oxalate Crystal Urine Bacteria (None) Ur Culture Indicated? SARS-CoV-2 (PCR) (Negative) 04/06/20 04/06/20 04/06/20 Range/Units 15:50 15:50 16:02 WBC (4.5-11.0) X10^3/uL RBC (4.0-5.2) X10^6/uL Hgb (12.0-16.0) g/dL Hct (36-46) % MCV (80-100) fL MCH (26-34) PG MCHC (30-36) % RDW (11.6-14.8) % Plt Count (150-400) X10^3/uL Neut % (Auto) (50-75) % Lymph % (Auto) (25-40) % [place] % (Auto) (3-14) % Eos % (Auto) (2-4) % Baso % (Auto) (0-2) % Neut # (Auto) (2359-1621) /uL Lymph # (Auto) (2640-1803) /uL [place] # (Auto) (0-900) /uL Eos # (Auto) (0-450) /uL Baso # (Auto) (0-100) /uL PT (10.1-12.7) SECONDS INR (0.9-1.3) APTT (26.4-36.2) SECONDS Sodium 135 L (137-145) mmol/L Potassium 5.8 H D (3.4-5.1) mmol/L Chloride 101 (98-107) mmol/L Carbon Dioxide 24 (22-32) mmol/L BUN 23 H (7-17) mg/dL Creatinine 0.74 (0.52-1.04) mg/dL Estimated GFR > 60.0 (>60) mL/min BUN/Creatinine Ratio 31.1 H (6-22) Glucose 114 H (80-110) mg/dL Lactate 2.0 (0.7-2.1) mmol/L Calcium 11.4 H (8.4-10.2) mg/dL Total Bilirubin 1.2 (0.2-1.3) mg/dL AST 29 (14-36) IU/L ALT 9 (<35) IU/L Alkaline Phosphatase 64 (38-126) U/L Total Protein 9.4 H (6.3-8.2) g/dL Albumin 4.6 (3.5-5.0) g/dL Globulin 4.8 H (1.7-4.1) g/dL Albumin/Globulin Ratio 1.0 (1.0-2.8) Lipase 78 (23-300) U/L Procalcitonin (<0.5) ng/mL Urine Color Urine Appearance Urine pH (4.5-8.0) Ur Specific [place] (1.000-1.035) Urine Protein (Negative) Urine Glucose (UA) (Negative) g/dL Urine Ketones (NEGATIVE) Urine Occult Blood (Negative) Urine Nitrate (Negative) Urine Bilirubin (NEGATIVE) Urine Urobilinogen (0.2) E.U./dL Ur Leukocyte Esterase (NEGATIVE) Urine RBC (0-5/HPF) Urine WBC (0-5/HPF) Calcium Oxalate Crystal Urine Bacteria (None) Ur Culture Indicated? SARS-CoV-2 (PCR) Negative (Negative) 04/06/20 04/06/20 Range/Units 16:17 18:49 WBC (4.5-11.0) X10^3/uL RBC (4.0-5.2) X10^6/uL Hgb (12.0-16.0) g/dL Hct (36-46) % MCV (80-100) fL MCH (26-34) PG MCHC (30-36) % RDW (11.6-14.8) % Plt Count (150-400) X10^3/uL Neut % (Auto) (50-75) % Lymph % (Auto) (25-40) % [place] % (Auto) (3-14) % Eos % (Auto) (2-4) % Baso % (Auto) (0-2) % Neut # (Auto) (2906-5962) /uL Lymph # (Auto) (2002-1468) /uL [place] # (Auto) (0-900) /uL Eos # (Auto) (0-450) /uL Baso # (Auto) (0-100) /uL PT (10.1-12.7) SECONDS INR (0.9-1.3) APTT (26.4-36.2) SECONDS Sodium (137-145) mmol/L Potassium (3.4-5.1) mmol/L Chloride (98-107) mmol/L Carbon Dioxide (22-32) mmol/L BUN (7-17) mg/dL Creatinine (0.52-1.04) mg/dL Estimated GFR (>60) mL/min BUN/Creatinine Ratio (6-22) Glucose (80-110) mg/dL Lactate 1.2 (0.7-2.1) mmol/L Calcium (8.4-10.2) mg/dL Total Bilirubin (0.2-1.3) mg/dL AST (14-36) IU/L ALT (<35) IU/L Alkaline Phosphatase (38-126) U/L Total Protein (6.3-8.2) g/dL Albumin (3.5-5.0) g/dL Globulin (1.7-4.1) g/dL Albumin/Globulin Ratio (1.0-2.8) Lipase (23-300) U/L Procalcitonin (<0.5) ng/mL Urine Color Yellow Urine Appearance Cloudy Urine pH 5.5 (4.5-8.0) Ur Specific [place] 1.025 (1.000-1.035) Urine Protein 2+ H (Negative) Urine Glucose (UA) Negative (Negative) g/dL Urine Ketones 2+ H (NEGATIVE) Urine Occult Blood 3+ H (Negative) Urine Nitrate Positive H (Negative) Urine Bilirubin Negative (NEGATIVE) Urine Urobilinogen 0.2 (0.2) E.U./dL Ur Leukocyte Esterase 2+ H (NEGATIVE) Urine RBC None seen (0-5/HPF) Urine WBC >100/hpf H (0-5/HPF) Calcium Oxalate Crystal Few H Urine Bacteria Many (>30) H (None) Ur Culture Indicated? Specimen cultured SARS-CoV-2 (PCR) (Negative) Imaging Data Chest x-ray: Radiologist's Impression: [address] [id number] ReportSigned Patient: Crystal Bell KMR#: [id number]: [id number]:[id number]/Sex: 84 / FDate of Service: 04/06/20Loc: EDAccession Number: [id number] Procedure: XR chest 1V Ordering Provider: Madelaine Willard D.O. PROCEDURE: XR CHEST 1V INDICATIONS: suspected sepsis TECHNIQUE: One view of the chest was acquired. COMPARISON: [facility], CR, XR CHEST 2V, 07/25/2018, 13:21. FINDINGS: Surgical changes and devices: None. Lungs and pleura: Lungs are clear. No pleural effusions or pneumothorax. Mediastinum: Mediastinal contours appear normal. Heart size is normal. Bones and chest wall: No suspicious bony lesions. Overlying soft tissues ap pear unremarkable. IMPRESSION: No evidence acute pulmonary process. Dictated by: Lewis Whitney M.D. on 04/06/2020 at 15:59 Approved by: Lewis Whitney M.D. on 04/06/2020 at 15:59 ECG Data Attestation: I personally reviewed and interpreted this ECG as follows: Prior ECG tracings: not available for review Interpretation: Sinus rhythm Ventricular rate of 70 to Left axis deviation Normal QRS Nonspecific ST T wave changes MDM Narrative Medical decision making narrative: No fevers. Does have a leukocytosis. Urinalysis concerning for UTI. Chest x-ray is unremarkable. Given her comorbid ities and her reports of altered mental status I feel the admitting for IV antibiotics is warranted. Dr. dodson notified. Discussed the admission with the patient in family at bedside. They expressed understanding and agreement. Discharge Plan Departure Patient Disposition: Admitted as Observation Clinical Impression: Acute UTI, Dehydration, Altered mental status Admit Date/Time: 04/06/20 19:05 Admit Provider: Gwen Dodson
[2020-04-06] MEDS: CEFTRIAXONE 1 GM/50 ML FROZ.PIGGY IV (18:45)
[2020-04-06 19:16] LABS: Lactate 2HR (Lactic Acid Rflx) 1.2 mmol/L (0.7-2.1)
[2020-04-06] MEDS: CODEINE/ACETAMINOPHEN 30/300 TABLET 1 TAB PO (21:30)
[2020-04-06] MEDS: FERROUS SULFATE 325 MG TABLET PO (21:30)
[2020-04-06] MEDS: ATORVASTATIN 20 MG TABLET 40 MG PO (21:30)
[2020-04-06] MEDS: SODIUM CHLORIDE 0.9% 1,000 ML 100 ML IV (21:30)
[2020-04-06] MEDS: FAMOTIDINE 20 MG TABLET 10 MG PO (21:30)
[2020-04-06] MEDS: LEVOTHYROXINE 50 MCG TABLET PO (21:34)
--- NOTE | 2020-04-06 23:40 | PC.NURSE ---
Patient is oriented except to date. Breath sounds diminished but CTA of 99%. HR irregular with murmur. Denies nausea. BT present and abdomen is soft. Relates she has chronic burning with urination but denies frequency, urgency or incontinence. Able to move self in bed. Out of bed with walker and SBA. Denies pain. Skin texture is very dry with tenting noted. Fall risk score is high and bed alarm is activated.
[2020-04-07 03:15] VITALS: BP 127/59; PULSE 74; RESP 16; TEMP 36.1; O2SAT 99
[2020-04-07] MEDS: LEVOTHYROXINE 50 MCG TABLET PO (06:02)
--- NOTE | 2020-04-07 07:47 | P.HP_ITS ---
History of Present Illness History of Present Illness Date Patient Seen: 04/07/20 Time Patient Seen: 07:48 Chief complaint: sent by Dr Kelly Narrative: 84-year-old female admitted via the emergency department. She is a long-term resident of assisted living in [place] and had reported symptoms of a UTI over the last several days. She does have a history of frequent UTIs with the least in the past multiple resistant organisms and so culture results were necessary to treat her. She developed increased weakness fatigue confusion etcperiod. Laboratory testing also revealed worsening of her chronic hypercalcemia and altogether it was recommended that she be evaluated in the emergency department. ER evaluation was mostly unremarkable. Vital signs were good. She was afebrile. Calcium had decreased to a more normal level for her. Urine showed persistence of probable infection and culture is started. She has a mild leukocytosis with left shift. She was placed on parental antibiotics IV fluids and admitted for further evaluation. Patient History Medical History Acquired hypothyroidism (05/23/11) Aortic stenosis (~09/2016) Chronic pain Controlled diabetes mellitus (10/13/13) Diverticular disease Elevated ferritin level Elevated serum GGT level Esophageal diverticulum, acquired (05/23/11) Essential hypertension (05/23/11) Hyperlipidemia Hyperparathyroidism (10/13/13) 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) Idiopathic peripheral neuropathy (05/21/13) Lumbar canal stenosis Lumbar facet arthropathy Osteoarthritis involving multiple joints on both sides of body Raynaud's phenomenon (05/23/11) Type 2 diabetes mellitus with hyperglycemia (11/18/12) Type 2 diabetes mellitus with microalbuminuria, without long-term current use of insulin (11/17/15) Surgical History History of cataract removal with insertion of prosthetic lens S/P total abdominal hysterectomy and bilateral salpingo-oophorectomy Family & Social History Social History: Prior Living Arrangements Assisted Living Safety & Behavioral: Feels Safe in Current Yes Environment Been Physically Hurt or No Threatened By a Person Suicidal Ideation Description None Suicide Plan Description No Plan Tobacco & Substance use: Smoking Status Never smoker alcohol intake current alcohol intake frequency 0-2 drinks per day Substance Use Type does not use Meds Home Medications and Allergies Home Medications Medication Instructions Recorded Confirmed Type Glucose: Home Monitoring Kit kit #1 11/18/12 03/17/19 Rx clobetasol 0.05 % topical cream 1 applictn TOP BIDP PRN #45 gram 09/05/17 03/17/19 Rx docusate sodium 50 mg capsule 50 mg PO DAILY 09/13/17 03/17/19 History Lancets #250 each 05/06/18 03/17/19 Rx Glucose: Truplus Lancets #250 each 04/27/19 Rx Disabled Parking #1 each 04/28/19 Rx metformin 500 mg tablet 500 mg PO BID #60 tab 06/24/19 Rx atorvastatin 40 mg tablet 40 mg PO QDAY #90 tab 07/15/19 Rx levothyroxine 50 mcg tablet 50 mcg PO QAM #90 tab 09/16/19 Rx estradiol 0.1 % VAG DAILY #42.5 gram 10/05/19 Rx famotidine 20 mg tablet 10 mg PO BID #90 tab 11/09/19 Rx ascorbate calcium (vitamin C) 500 500 mg PO BID #180 tab 12/17/19 Rx mg tablet cholecalciferol (vitamin D3) 25 2,000 unit PO DAILY #180 cap 12/17/19 Rx mcg (1,000 unit) capsule ferrous sulfate 325 mg (65 mg 325 mg PO BID #180 tab 12/21/19 Rx iron) tablet acetaminophen 325 mg tablet 650 mg PO Q4-6H PRN #180 tab 12/31/19 Rx triamcinolone acetonide 0.1 % 1 applictn TOP QID #80 gram 01/11/20 Rx topical cream diphenhydramine HCl 25 mg capsule 25 mg PO Q4H PRN #90 cap 01/28/20 Rx acetaminophen 300 mg-codeine 30 mg See Rx Instructions PO Q4H PRN 02/26/20 Rx tablet #120 tab Allergies Allergy/AdvReac Type Severity Reaction Status Date / Time ciprofloxacin [CIPROFLOXACIN] Allergy Intermediate LEG Verified 04/06/20 15:31 PAIN/SWELLING adhesive [ADHESIVE] Allergy Mild TAPE Verified 04/06/20 15:31 bacitracin Allergy Mild Verified 04/06/20 15:31 [From NEOSPORIN + PAIN RELIEF] neomycin Allergy Mild Verified 04/06/20 15:31 [From NEOSPORIN + PAIN RELIEF] polymyxin B Allergy Mild Verified 04/06/20 15:31 [From NEOSPORIN + PAIN RELIEF] pramoxine Allergy Mild Verified 04/06/20 15:31 [From NEOSPORIN + PAIN RELIEF] Sulfa (Sulfonamide Allergy Mild Verified 04/06/20 15:31 Antibiotics) [SULFA (SULFONAMIDE ANTIBIOTICS)] meclizine [MECLIZINE] Allergy Unknown Verified 04/06/20 15:31 NSAIDS (Non-Steroidal Allergy Unknown Verified 04/06/20 15:31 Anti-Inflamma [NSAIDS (NON-STEROIDAL ANTI-INFLAMMA] quetiapine [QUETIAPINE] AdvReac Intermediate SHAKY, Verified 04/06/20 15:31 UNWELL amoxicillin [AMOXICILLIN] AdvReac Mild SENSE OF Verified 03/16/19 13:47 DOOM, clavulanic acid AdvReac Mild SENSE OF Verified 03/16/19 13:47 [CLAVULANIC ACID] DOOM, Review of Systems Constitutional Constitutional: Denies excessive sweating, Denies fever(s), Denies headache(s), Reports weakness, Denies weight gain and Denies weight loss Eyes Eyes: Denies change in vision, Denies itchy eyes, Denies loss of vision and Denies other visual disturbances ENT Ears, Nose, Mouth, and Throat: No change in voice, No dysphagia, No dizziness, No otalgia, No headache(s), No hoarseness, No lip swelling, No neck pain, No sore throat, No throat swelling and No tongue swelling Cardiovascular Cardiovascular: Denies chest pain, Denies syncope, Denies rapid heart rate, Denies irregular heart rhythm, Denies palpitations, Denies dyspnea, Denies dyspnea on exertion and Denies slow heart rate Respiratory Respiratory: Denies chest congestion, Denies cough, Denies hemoptysis, Denies dyspnea, Denies dyspnea on exertion, Denies stridor and Denies wheezing Gastrointestinal Gastrointestinal: Denies abdominal pain, Denies bloating, Denies change in bowel habits, Denies change in stool character, Denies dysphagia, Denies nausea, Denies vomiting and Denies hematemesis Genitourinary Genitourinary: Denies hematuria, Denies urinary frequency and Denies difficulty voiding Musculoskeletal Musculoskeletal: Denies abnormal gait, Denies myalgias, Denies arthralgias, Denies limited range of motion and Denies neck pain Integumentary/Breasts Skin/Breast: Denies bleeding lesions, Denies change in pigmentation, Denies changing lesions, Denies new lesions, Denies rash, Denies skin swelling, Denies sores and Denies jaundice Neurologic Neurologic: Denies abnormal speech, Denies abnormal gait, Reports behavioral changes (Lethargy generalized weakness), Reports confusion, Denies dizziness, Denies syncope, Denies headache(s), Denies loss of vision, Denies seizure-like activity, Denies paresthesias and Reports weakness Psychiatric Psychiatric: Reports behavioral changes (Lethargy generalized weakness), Denies change in appetite, Reports confusion, Reports difficulty concentrating, Denies auditory hallucinations, Denies mood swings and Denies suicidal ideation Endocrine Endocrine: Denies excessive sweating, Denies flushing, Denies polyuria and Denies palpitations Hematologic/Lymphatic Hematologic/Lymphatic: Denies easy bleeding, Denies easy bruising and Denies lymphadenopathy Allergic/Immunologic Allergic/Immunologic: Denies urticaria, Denies itchy eyes, Denies lip swelling, Denies throat swelling, Denies tongue swelling and Denies wheezing Exam Vital Signs (past 8 hours): - 04/06/20 23:57 04/07/20 03:15 Temperature 97.2 F L 97.0 F L Pulse Rate 76 74 Respiratory Rate 18 16 Blood Pressure 132/66 127/59 L Pulse Oximetry 99 99 Oxygen Delivery Method Room Air Oxygen Flow Rate 0 Narrative Exam Narrative: Elderly female who looks to be in no obvious distress sitting up at the edge of the bed working on eating breakfast HEENT-noted alopecia otherwise unremarkable normocephalic atraumatic PERRLA Neck-no bruits Lungs-clear with good breath sounds no wheezes no crackles Heart-regular rate and rhythm grade 3/6 systolic ejection murmur left and right precordium with radiation towards the neck consistent with her known aortic stenosis Abdomen-positive bowel tones soft nontender nondistended no hepatosplenomegaly Extremities-no cyanosis clubbing or edema Neuro-alert orient x3 recognizes me has good memory of recent events. Moves all 4 extremities gait not tested no abnormal reflexes noted Objective Labs Result Diagrams: 04/06/20 15:50 04/06/20 15:50 Labs: Laboratory Results - last 24 hr 04/06/20 04/06/20 04/06/20 15:50 15:50 15:50 WBC 12.1 H RBC 3.95 L Hgb 13.0 Hct 40.6 MCV 102.7 H MCH 32.9 MCHC 32.0 RDW 12.9 Plt Count 283 Neut % (Auto) 73.8 Lymph % (Auto) 17.8 L [place] % (Auto) 7.2 Eos % (Auto) 0.6 L Baso % (Auto) 0.6 Neut # (Auto) 8900 H Lymph # (Auto) 2200 [place] # (Auto) 900 Eos # (Auto) 100 Baso # (Auto) 100 PT 11.2 INR 1.0 APTT 28 Sodium Potassium Chloride Carbon Dioxide BUN Creatinine Estimated GFR BUN/Creatinine Ratio Glucose Lactate Calcium Total Bilirubin AST ALT Alkaline Phosphatase Total Protein Albumin Globulin Albumin/Globulin Ratio Lipase Procalcitonin 0.22 Urine Color Urine Appearance Urine pH Ur Specific [place] Urine Protein Urine Glucose (UA) Urine Ketones Urine Occult Blood Urine Nitrate Urine Bilirubin Urine Urobilinogen Ur Leukocyte Esterase Urine RBC Urine WBC Calcium Oxalate Crystal Urine Bacteria Ur Culture Indicated? SARS-CoV-2 (PCR) 04/06/20 04/06/20 04/06/20 15:50 15:50 16:02 WBC RBC Hgb Hct MCV MCH MCHC RDW Plt Count Neut % (Auto) Lymph % (Auto) [place] % (Auto) Eos % (Auto) Baso % (Auto) Neut # (Auto) Lymph # (Auto) [place] # (Auto) Eos # (Auto) Baso # (Auto) PT INR APTT Sodium 135 L Potassium 5.8 H D Chloride 101 Carbon Dioxide 24 BUN 23 H Creatinine 0.74 Estimated GFR > 60.0 BUN/Creatinine Ratio 31.1 H Glucose 114 H Lactate 2.0 Calcium 11.4 H Total Bilirubin 1.2 AST 29 ALT 9 Alkaline Phosphatase 64 Total Protein 9.4 H Albumin 4.6 Globulin 4.8 H Albumin/Globulin Ratio 1.0 Lipase 78 Procalcitonin Urine Color Urine Appearance Urine pH Ur Specific [place] Urine Protein Urine Glucose (UA) Urine Ketones Urine Occult Blood Urine Nitrate Urine Bilirubin Urine Urobilinogen Ur Leukocyte Esterase Urine RBC Urine WBC Calcium Oxalate Crystal Urine Bacteria Ur Culture Indicated? SARS-CoV-2 (PCR) Negative 04/06/20 04/06/20 16:17 18:49 WBC RBC Hgb Hct MCV MCH MCHC RDW Plt Count Neut % (Auto) Lymph % (Auto) [place] % (Auto) Eos % (Auto) Baso % (Auto) Neut # (Auto) Lymph # (Auto) [place] # (Auto) Eos # (Auto) Baso # (Auto) PT INR APTT Sodium Potassium Chloride Carbon Dioxide BUN Creatinine Estimated GFR BUN/Creatinine Ratio Glucose Lactate 1.2 Calcium Total Bilirubin AST ALT Alkaline Phosphatase Total Protein Albumin Globulin Albumin/Globulin Ratio Lipase Procalcitonin Urine Color Yellow Urine Appearance Cloudy Urine pH 5.5 Ur Specific [place] 1.025 Urine Protein 2+ H Urine Glucose (UA) Negative Urine Ketones 2+ H Urine Occult Blood 3+ H Urine Nitrate Positive H Urine Bilirubin Negative Urine Urobilinogen 0.2 Ur Leukocyte Esterase 2+ H Urine RBC None seen Urine WBC >100/hpf H Calcium Oxalate Crystal Few H Urine Bacteria Many (>30) H Ur Culture Indicated? Specimen cultured SARS-CoV-2 (PCR) Assessment & Plan Assessment & Plan narrative: 1. UTI with altered mental status concerning for possible septic picture -continue with parental antibiotics and tailor antibiotics to culture results when available. 2. Hypercalcemia - patient has longstanding hypercalcemia thought to be due to hyperparathyroidism. Numbers are more in her usual baseline and given her age and comorbidities further investigations not been felt to be necessary. We will continue to monitor for now. Given the drop will continue with IV hydration which should help improve as well and I do not believe she needs a bisphosphonate infusion at this time. may benefit from low-dose diuretic therapy as well but will continue to monitor for now without that 3. Hyperkalemia- patient not on any medication that should raise potassium. Continue with IV fluids without potassium supplementation and re-evaluate 4. Diabetes -continue on diabetic diet and follow blood sugars as needed with coverage insulin. Has not required specific intervention 5. Patient's other medical problems including hyperlipidemia hypothyroidism etc. are stable and usual medications will be continued 6. VTE prophylaxis-Lovenox will be employed at usual low-dose Quality VTE Deep Vein Thrombosis/Pulmonary Embolism Present on Admission: No
[2020-04-07] MEDS: DOCUSATE 100 MG CAPSULE PO (08:31)
[2020-04-07] MEDS: ENOXAPARIN 30 MG/0.3 ML SYRINGE SUBCUT (08:31)
[2020-04-07] MEDS: ATORVASTATIN 20 MG TABLET 40 MG PO (08:31)
[2020-04-07] MEDS: FAMOTIDINE 20 MG TABLET 10 MG PO ×2 (08:31→20:17)
[2020-04-07] MEDS: FERROUS SULFATE 325 MG TABLET PO ×2 (08:32→20:17)
[2020-04-07 08:57] VITALS: BP 107/53; PULSE 88; RESP 12; TEMP 36.4; O2SAT 95
[2020-04-07] MEDS: SODIUM CHLORIDE 0.9% 1,000 ML 100 ML IV (09:03)
[2020-04-07 11:43] VITALS: BP 105/54; PULSE 76; RESP 16; TEMP 36.3; O2SAT 95
--- NOTE | 2020-04-07 11:50 | PT.IIE ---
Surgical History (Last Reviewed 04/07/20 @ 07:51 by Kurt Kelly MD) History of cataract removal with insertion of prosthetic lens S/P total abdominal hysterectomy and bilateral salpingo-oophorectomy Medical History (Last Reviewed 04/07/20 @ 07:51 by Kurt Kelly MD) Acquired hypothyroidism (05/23/11) Aortic stenosis (~09/2016) Chronic pain Controlled diabetes mellitus (10/13/13) Diverticular disease Elevated ferritin level Elevated serum GGT level Esophageal diverticulum, acquired (05/23/11) Essential hypertension (05/23/11) Hyperlipidemia Hyperparathyroidism (10/13/13) 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) Idiopathic peripheral neuropathy (05/21/13) Lumbar canal stenosis Lumbar facet arthropathy Osteoarthritis involving multiple joints on both sides of body Raynaud's phenomenon (05/23/11) Type 2 diabetes mellitus with hyperglycemia (11/18/12) Type 2 diabetes mellitus with microalbuminuria, without long-term current use of insulin (11/17/15) Physical Therapy Inpatient Evaluation/Re-Eval M1 PT/OT-IP Prior Functional Status Start: 04/07/20 09:43 Freq: NEEDED Status: Active Protocol: Document 04/07/20 11:41 AW (Rec: 04/07/20 12:12 AW [email or web address]) Medical Review Prior Functional Status Medical History Reviewed Yes Communication Pt is an effective verbal communicator and is able to make needs known. Mobility and Gait Pt uses a FWW for mobility in her apartment and an electric scooter for longer facility distances. She states she broke her right hip a year ago . Activities of Daily Living and IADL's Pt reports independent dressing and showering. She is typically continent and uses a BSC. She receives meals in her room. [facility] provides medication assist. Her son, Twin, manages her finances. She depends on her children, Twin and Pati, for transportation. 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 She currently lives at [facility] in [facility]. Her daughter, Pati Kirkpatrick, lives in [place] and provides regular assist. Son, Twin, manages finances and provides transportation and other assist. M2 PT-IP Current Condition Start: 04/07/20 09:43 Freq: NEEDED Status: Active Protocol: Document 04/07/20 11:41 AW (Rec: 04/07/20 12:12 AW [email or web address]) Physical Therapy Current Condition Current Condition Evaluation Date 04/07/20 Treatment Diagnosis UTI, AMS, difficulty in walking Onset Date 04/06/20 Precautions Other Precautions BMI 18, history of falls M3 PT-IP Subjective Start: 04/07/20 09:43 Freq: NEEDED Status: Active Protocol: Document 04/07/20 11:41 AW (Rec: 04/07/20 12:12 AW [email or web address]) Subjective Physical Therapy Visit Type Type Initial Evaluation Visit Start Time 11:00 Visit Stop Time 11:31 Total Visit Minutes 31 Number of SOLAR [employer] SYSTEM INSTALLER Visits 0 Physical Therapy Visit Comments Patient Comments Pt is willing to participate with PT Patient Goals Return to [facility] at discharge. Therapy Pain Assessment Pain When Pain Assessed During Mobility Pain Present Pain Present Pain Reported Location right hip Intensity 5 Scale Used Numeric (0 - 10) Pain Management Techniques Distraction M4 PT-IP Mobility and Gait Start: 04/07/20 09:43 Freq: NEEDED Status: Active Protocol: Document 04/07/20 11:41 AW (Rec: 04/07/20 12:12 AW [email or web address]) PT-Bed Mobility Assessment Supine to Sit Supine to Sit Contact Guard Assistance Scooting Scooting to Edge of Bed Standby Assistance PT-Transfer Assessment Sit to and From Stand Sit to and from Stand Contact Guard Assistance,Use of Upper Extremities Equipment Transfer Assistive Device Gait Belt,Front Wheeled Walker Orthotic/Prosthetic Devices or Brace: No Transfers Transfer Destination Bed,Chair,Bedside Commode Transfer Technique Stand Step Pivot Transfer Ability Level of Assist Standby Assistance,Contact Guard Assistance,Use of Upper Extremities Comments Mobility Comments Pt was lying in the bed as PT arrived. She requested to use the commode and completed supine to sit CGA with HOB flat. She stood CGA and used FWW for SPT to BSC set up on her right side. She voided and completed pericare independently and then transferred back to sit EOB with CGA for sit to stand and SBA for transfer. Pt sat without need for UE support during LE assessment. She then stood CGA and used the FWW to ambulate 5 feet to the chair, transferring SBA. She agreed to further ambulation and stood CGA from the chair. She ambulated in the halls 100 feet with FWW SBA. She began to fatigue around 60 feet but did not require any rest break . On return to the room, she transferred to the chair CGA and cues to keep the walker with her during turns. She was positioned with call light and all needs in reach and agreed to stay up on the chair for lunch. [employer] provided warm blankets. Gait Assessment Gait Gait Assistance Required: Standby Assistance,Contact Guard Assist Distance (Feet) 100 Assistive Devices Assistive Device Gait Belt,Front Wheeled Walker Orthotic/Prosthetic Devices or Brace: No Gait Deviations General Gait Pattern Antalgic,Decreased Stride Length,Decreased Feet Clearance,Flexed Trunk Factors Limiting Gait Function Factors Limiting Gait Function Decreased Sensation,Decreased Strength,Pain,Poor Balance, Poor Safety Awareness Comments Gait Comments Pt required frequent cues for walker management as she tends to push the walker too far in front of her. Stair Climbing Assessment Comments Stair Climbing Comments Not assessed. PT-Balance Assessment Sitting Balance and Reactions Static Sitting Balance Ability Good Dynamic Sitting Balance Ability Good Standing Balance and Reactions Static Standing Balance Ability Fair Dynamic Standing Balance Ability Fair Device Used FWW M5 PT-IP Objective Assessments Start: 04/07/20 09:43 Freq: NEEDED Status: Active Protocol: Document 04/07/20 11:41 AW (Rec: 04/07/20 12:12 AW [email or web address]) Orientation Orientation/Cognition Level of Alertness Alert Orientation Name,Month,Year,Place, Situation Language Function Ability No Deficits Noted Safety Awareness Decreased Safety Awareness Gross Range of Motion Lower Extremity ROM Assessment Within Functional Limits Strength Lower Extremity Strength Assessment Bilaterally Impaired Hip 4-/5 Knee extension 4+/5; flexion 4-/5 Ankle 4-/5 Sensation Assessment Sensation Gross Sensation Right LE Impaired,Left LE Impaired Light Touch Impaired Comments Sensation Comments Chronic diabetic neuropathy affecting sensation in BLE from feet up to knee joint. M6 PT-IP Treatment Start: 04/07/20 09:43 Freq: NEEDED Status: Active Protocol: Document 04/07/20 11:41 AW (Rec: 04/07/20 12:12 AW [email or web address]) Physical Therapy Treatment Education Education Provided Safety M7 PT-IP Assessment and Plan Start: 04/07/20 09:43 Freq: NEEDED Status: Active Protocol: Document 04/07/20 11:41 AW (Rec: 04/07/20 12:12 AW [email or web address]) PT Summary Assessment and Plan Potential Rehabilitation Potential Good Status of Condition at Evaluation Stable Summary Impairments Pain,Strength,Balance, Sensation,Cognition,Bed Mobility,Transfers,Gait, Activity Tolerance Assessment Summary Crystal is an 84 yo woman with admitting diagnosis of UTI and AMS. She is modified independent with facility mobility using FWW in her apartment and electric scooter for longer distances. She lives at [facility] and receives medication assist. Pt states staff could assist her with bathing or other needs if she required additional help. On evaluation , pt requires SBA to CGA with all mobilities using FWW. She presents with BLE weakness and sensation disturbance affecting her mobility independence. Pt would benefit from continued acute PT to address strength and gait deficits. She will likely be safe to discharge back to [facility] with possible need for increased assist. Pt may also benefit from subacute PT such as home health depending on progress. Goals Bed Mobility Goal Independent Transfer Goal Independent,Front Wheeled Walker Gait Goal Independent,Front Wheel Walker Gait Distance 50 Other Goals - progress gait to SBA with FWW 200 feet Days to Meet Goals 5 Frequency of Treatment Frequency Of Treatment Once a Day Treatment Plan Physical Therapy Treatment Plan Bed Mobility Training,Transfer Training,Gait Training, Therapeutic Exercise,Balance Retraining,Discharge Planning, Hot or Cold Pack,Neuromuscular Re-ed Other Recommendations and Next Treatment gait training with FWW, Focus suggest 5 time sit to stand for baseline Recommendations To Nursing Amount of Assist Needed 1 Person Assist Discharge Recommendations PT Discharge Recommendations Home with Assistance,Home Health Other Discharge Recommendations return to [facility]; possibly depending on progress Transportation Needs at Discharge Private Vehicle
[2020-04-07] MEDS: INSULIN ASPART 100 UNIT/ML INSULN PEN SUBCUT ×2 (12:06→16:38)
--- NOTE | 2020-04-07 12:06 | CM.IDA ---
Addendum entered by Lilliana Cage, NANCY 04/08/20 11:49: Correction, dtr Pati's cell is [phone] Original Note: Initial DCP Assessment Note Patient is an 84 yo female, resident of [facility] in [place]. Patient presents w/increase in lethargy, weakness and confusion, UTI+ PCP: Kurt Kelly Payer: MCR/[employer] Spoke w/Dr Kelly this morning, he indicated patient was improving quickly on abx and might be medically stable for DC back to [facility] tomorrow. Met w/patient, introduced role. 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 Patient hopes to return home when medically stable and gives this BUDGET ANALYST permission to contact her dtr Pati. Placed call to dtr Pati, ext [phone] cell [phone], who works at as the Director of Patient Hospitality Services and Patient Access. Pati sees her mom weekly, from a distance d/t COVID-19 pandemic, and has been worried about her mom last couple visits. Patient has lost weight quickly and patient has admitted to her dtr she doesn't have an appetite, and when she does eat she has a sense of fullness quickly. This BUDGET ANALYST suggests dietary consult while patient here at ? Dtr appreciative. This BUDGET ANALYST will f/u w/Dr Kelly. Patient currently receiving assist w/medications, meal prep, showering (SBA ?) at [facility], dtr expresses concern that she was not notified that patient's intake had decreased dramatically, dtr worried about her mom. This BUDGET ANALYST suggests HH RN/PT/OT/SUPERVISOR MACHINE SETTER upon DC to provide additional support to her mom, and dtr appreciative, no HH agency preference. Dtr has not been in contact w/ Dr Kelly today, states very busy w/work today, but hopes to get medical update soon. Placed call to Dr Leticia Duckworth's RN, requested msg be relayed..dietary consult? HH referral will also be needed per dtr Pati's request. Also need to place call to a staff member at [facility] Following closely for coordination of safe DCP NANCY Sánchez Discharge Planning/Care Management CM Discharge Assessment Start: 04/07/20 11:47 Freq: Status: Active Protocol: Document 04/07/20 11:47 JAZMIN (Rec: 04/07/20 12:05 JAZMIN [id number]) Discharge Planning Assessment Assigned Manual Machinist NANCY Mathew DPOA/Assigned Designee Name Pati Kirkpatrick dtr Contact Information home, work, [phone] Advance Directives? Yes History Provided By Patient,Family Member,Medical Record Prior Living Arrangements Assisted Living Household Members caregiver Type of transporation used prior to Relies on Others admit Comment [facility] in [place] Facility Name Admitted From: [facility] Willing to Return to Facility? Yes Independent with ADL's Yes: Mostly Is patient alert and oriented? Yes: Mild short term memory loss Needs Assistance With Meal Prep,Managing Medications ,Home Chores / Shopping Patient/Family Preference Home with Home Health Barriers to Discharge No Comment PT/OT evals pending. Patient is in observation status Discharge Plan Assisted Living Facility Community Services Home Health Nurse Transportation Arrangement Family Review Status In Process
[2020-04-07] MEDS: CEFTRIAXONE 1 GM/50 ML FROZ.PIGGY IV ×2 (12:22→23:39)
[2020-04-07] MEDS: CODEINE/ACETAMINOPHEN 30/300 TABLET 1 TAB PO ×2 (14:10→20:19)
--- NOTE | 2020-04-07 15:17 | PC.NURSE ---
Pt reports hx of decreased appetite; low-glucose protein beverage provided for breakfast; 100% lunch eaten; urine cloudy, yellow; ls clear, diminished; IV fluids infusing; mild to moderate chronic back pain; T-3 administered; pt using call light, as needed
[2020-04-07 15:52] VITALS: BP 104/49; PULSE 73; RESP 16; TEMP 36.2
--- NOTE | 2020-04-07 18:01 | DIET.PN ---
Dietary Progress Note RD consult received this late afternoon for 84y F reporting decreased appetite, unintentional weight loss, and early satiety. Upon chart review pts UBW is stable for past 3y at 63kg but presents today at 44.9kg showing 28% unintentional weight loss in one year or less which likely qualifies her for severe malnutrition, especially as her BMI has fallen to 18.1 which is also severe for age. RD will meet c pt for in person assessment Saturday morning.
[2020-04-08 01:42] VITALS: BP 116/51; PULSE 73; RESP 16; TEMP 36.6; O2SAT 99
--- NOTE | 2020-04-08 01:58 | PC.NURSE ---
Addendum entered by Elizabeth Whalen R.N. 04/08/20 06:16: Complaining of 4/10 bilateral leg pain; requested/medicated with Tylenol #3. Original Note: 0012 patient seen and assessed. Is mostly oriented but does not know date, day of week or remember why she is in the hospital. Is forgetful, can be impulsive and repetitive in conversation. Breath sounds diminished but CTA with RA sat of 99%. HRR with murmur. Denies nausea. BT present and abdomen is soft. Getting up to BSC frequently and voiding in small amounts,50-100cc each time. Denies any dysuria tonight. Is able to move herself in bed. Gets out of bed with walker and SBA. Allevyn dressing to left of coccyx is CDI; coccyx/buttocks reddened but blanchable and waffle cushion is being used. Denies pain. Fall risk score is high and bed alarm is activated.
[2020-04-08] MEDS: LEVOTHYROXINE 50 MCG TABLET PO (05:13)
[2020-04-08] MEDS: SODIUM CHLORIDE 0.9% 1,000 ML 100 ML IV (05:13)
[2020-04-08] MEDS: CODEINE/ACETAMINOPHEN 30/300 TABLET 1 TAB PO ×2 (06:15→09:12)
[2020-04-08 06:29] LABS: BUN Creatinine Ratio 21.7 (6-22); Blood Urea Nitrogen 13 mg/dL (7-17); Carbon Dioxide 27 mmol/L (22-32); Chloride 109 mmol/L (98-107); Estimated Glomerular Filt Rate > 60.0 mL/min (>60); Glucose 143 mg/dL (80-110); HEMOLYSIS < 15 (0-50); Potassium 3.7 mmol/L (3.4-5.1); Sodium 137 mmol/L (137-145)
--- NOTE | 2020-04-08 08:19 | PM.PN.1 ---
Subjective Subjective Date Patient Seen: 04/08/20 Time Patient Seen: 08:19 Interval history: Patient with an uneventful day yesterday. Careful evaluation has shown that she has had quite a bit of weight loss. Her BMI is currently 18. Patient reports a very significantly decreased appetite. No other specific symptoms. Blood tests have been essentially unremarkable. She did have that elevated calcium initially but that has normalized as of this morning suggesting that is probably her underlying hyperparathyroidism combined with relative dehydration. I have stopped all of her calcium and vitamin-D supplements and those should not be reinstated. However there is no evidence of any other underlying disease. Alk-phos was normal as were her LFTs suggesting a most likely benign sources of her elevated calcium as above probably hyperparathyroidism No other specific symptoms and no other findings are clues to suggest it any more serious underlying disease to lead to the weight loss. This point will need to continue to encourage nutritious foods and supplements She has remained afebrile. Her urine culture is growing E coli with minimal resistance is and appropriate antibiotics can be selected. She is currently on an effective antibiotic. She was up with physical therapy yesterday felt to be doing well actually no worrisome deficits, or needs Exam Vital Signs (past 8 hours): - 04/08/20 01:42 Temperature 97.8 F Pulse Rate 73 Respiratory Rate 16 Blood Pressure 116/51 L Pulse Oximetry 99 Oxygen Delivery Method Room Air Oxygen Flow Rate 0 Objective Labs Result Diagrams: 04/06/20 15:50 04/08/20 06:11 Labs: Laboratory Results - last 24 hr 04/08/20 06:11 Sodium 137 Potassium 3.7 D Chloride 109 H Carbon Dioxide 27 BUN 13 Creatinine 0.60 Estimated GFR > 60.0 BUN/Creatinine Ratio 21.7 Glucose 143 H Calcium 9.0 [facility] Medical History Acquired hypothyroidism (05/23/11) Aortic stenosis (~09/2016) Chronic pain Controlled diabetes mellitus (10/13/13) Diverticular disease Elevated ferritin level Elevated serum GGT level Esophageal diverticulum, acquired (05/23/11) Essential hypertension (05/23/11) Hyperlipidemia Hyperparathyroidism (10/13/13) 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) Idiopathic peripheral neuropathy (05/21/13) Lumbar canal stenosis Lumbar facet arthropathy Osteoarthritis involving multiple joints on both sides of body Raynaud's phenomenon (05/23/11) Type 2 diabetes mellitus with hyperglycemia (11/18/12) Type 2 diabetes mellitus with microalbuminuria, without long-term current use of insulin (11/17/15) Surgical History History of cataract removal with insertion of prosthetic lens S/P total abdominal hysterectomy and bilateral salpingo-oophorectomy Social History household members: caregiver Smoking Status: Never smoker alcohol intake: current Assessment & Plan Assessment & Plan narrative: 1. UTI-I am going to switch her over to oral antibiotic therapy. I am going to choose cefuroxime for ease of administration given its a twice a day drug. I 1st generation cephalosporin would also be appropriate however is bit more complicated to administer. She does have multiple drug allergies making some sulfa based and fluoroquinolones inappropriate choices. I plan to follow-up the active treatment course with a 30 day at least suppressive dose nitrofurantoin and strong consideration for continuing that indefinitely 2. Hypercalcemia-as above I do not believe there is any worrisome features behind this. Probably a combination of her underlying parathyroid issue and mild dehydration. Is completely corrected as of this morning. 3. Weight loss-no evidence of any serious disease behind this. Plan to continue to encourage healthy eating and offer snacks in effort to increase oral intake which should result in improvement 4. Diabetes-patient's blood sugars 160-180 or so. Will clearly need to be back on metformin when discharge. For now covering her with insulin. 5. Coccygeal skin breakdown-patient with early pressure sore noted by nursing staff yesterday. Obviously mostly secondary to her poor nutritional status as well as weight loss. At this moment it appears to be relatively unremarkable early stage and should respond to appropriate conservative therapies. However this need to be addressed and monitored in the outpatient setting as well all the more reason for home health services. 6. Patient's vital signs otherwise are acceptable. Continue her current medications without change 7. Code status-discussed with her her wishes in the event of a sudden cardiac or respiratory arrest or other disastrous event. She strongly prefers to let nature take its course feeling as though her higher power has a plan for her and is not her job to intervene. We discussed the pros and cons of options and I think ultimately making her no code is entirely which she wishes and I have placed that order for her today. Plan is to keep here today to continue to observe her and offer her a nutritious food see if we can improve her nutrition and educator some about that. Also need to monitor the early skin breakdown on her coccyx. However she should be ready for discharge and return to assisted living tomorrow with the addition of home health services to help a bit with physical therapy but also I think nursing services to evaluate her skin breakdown etcetera Note: Greater than 30 minutes was spent evaluating the patient on the floor, including examining the patient, discussing clinical course with clinical and nursing staff, reviewing clinical course in the computer, preparing documentation and writing orders for continued management of care, discussing status with family as appropriate, reviewing plans for the next 24 hours with both patient/family and nursing staff as appropriate. Quality VTE Deep Vein Thrombosis/Pulmonary Embolism Present on Admission: No
[2020-04-08 08:22] VITALS: BP 119/58; PULSE 75; RESP 16; TEMP 36.6; O2SAT 100
[2020-04-08] MEDS: INSULIN ASPART 100 UNIT/ML INSULN PEN SUBCUT ×3 (09:07→17:48)
[2020-04-08] MEDS: FERROUS SULFATE 325 MG TABLET PO ×2 (09:12→21:52)
[2020-04-08] MEDS: ENOXAPARIN 30 MG/0.3 ML SYRINGE SUBCUT (09:12)
[2020-04-08] MEDS: DOCUSATE 100 MG CAPSULE PO (09:12)
[2020-04-08] MEDS: FAMOTIDINE 20 MG TABLET 10 MG PO ×2 (09:12→21:52)
[2020-04-08] MEDS: ATORVASTATIN 20 MG TABLET 40 MG PO (09:14)
--- NOTE | 2020-04-08 10:07 | DIET.PN ---
Dietary Progress Note Assessment: 84y F admitted for UTI c altered mental status referred to nutrition for reported severe weight loss. Upon chart review, pt UBW 63kg over past 3y with severe unintentional weight loss in the past 1y (-28%). Upon discussion c pt, she reports over past year she has had reduced appetite and early satiety but cannot attribute it to anything specific. Pt's meals provided by her living facility and she has a refrigerator to store additional food. Protocol at facility is to have residents order their meals off of a menu, however, if pt is not hungry or forgets to order, she will not have automatic meal selected for her. Pt does not report difficulty chewing or swallowing, no heartburn or GI issues. Pt says she does like the food at her facility. Pt was able to elaborate on details of her life, growing up in a [place] family, living with her family in [place], working at [employer] for 25y, the of her spouse, ways her father prepared meals, but was less able to elaborate on events over the past year. When cued about usual meal options lately, she stated its been so long since I was at [facility], I don't really remember, only that I'm not very hungry. Pt states her usual breakfast for years has been toast c Jif pb, coffee c cream and splenda. Indeed, it is what she was enjoying upon our conversation. Pt had also eaten a vanilla yogurt this morning and expressed liking yogurt. Pt reports her son is making a batch of her dads special mustard crusted cube steak so she can freeze it and enjoy once d/c'd from hospital. Pt feels she would like to add vanilla protein drink to her daily routine to support her nutrition status. We will send one with her lunch today. Pt ordered beef tips c mushrooms, mashed potatoes, steamed veg, and fruit cup c cottage cheese for lunch. When asked if she would prefer half portions, she declined and said she would like to eat these items in their full portions. HT: 157.4cm WT: 44.9kg UBW: 63kg (-28% unintentional in 1y, severe) BMI: 18.1 (severe for age) Nutrition Diagnosis: Severe Chronic PCM r/t decreased appetite and social cuing aeb 28% unintentional weight loss in 1y (severe), BMI 18.1 (severe for age), pt having some difficulty c short term memory which may impact independent feeding cues, pt living in facility during global pandemic c reduced social cues in mealtime environment. Interventions: 1. [facility] pt have stock of high protein items in her unit to snack on including peanut butter, yogurt, and any special frozen entrees (such as the steak). 2. [facility] pt consume one vanilla Ensure Enlive (350kcals, 20g PRO) daily to support nutrition status, up to two per day. 3. During pandemic, [facility] pt receive gentle family phone call daily to remind pt to have a snack or drink her protein drink. Diet Order: CCD EER: 58g PRO (1.3g/kg per elder PCM), 1600kcal (35kcal/kg per elder PCM) Monitoring/Evaluations: daily weights, POs, ONS tolerance
--- NOTE | 2020-04-08 10:30 | CM.DPNOTE ---
Faxed face to face, order and clinicals to [facility] per Oksana. Received fax confirmation. Scanned face to face in EMR. Terese Holder CM Asst.
--- NOTE | 2020-04-08 11:30 | PT.IPTN ---
Physical Therapy Treatment Note M2 PT-IP Current Condition Start: 04/07/20 09:43 Freq: NEEDED Status: Active Protocol: Document 04/07/20 11:41 AW (Rec: 04/07/20 12:12 AW [id number]) Physical Therapy Current Condition Current Condition Evaluation Date 04/07/20 Treatment Diagnosis UTI, AMS, difficulty in walking Onset Date 04/06/20 Precautions Other Precautions BMI 18, history of falls M3 PT-IP Subjective Start: 04/07/20 09:43 Freq: NEEDED Status: Active Protocol: Document 04/08/20 11:11 KS (Rec: 04/08/20 12:50 KS [id number]) Subjective Physical Therapy Visit Type Type Treatment Note Visit Start Time 11:11 Visit Stop Time 11:30 Total Visit Minutes 19 Number of KILN BURNER HELPER Visits 1 Physical Therapy Visit Comments Patient Comments Pt is willing to participate with PT Patient Goals Return to [facility] at discharge. Therapy Pain Assessment Pain When Pain Assessed During Mobility Pain Present Pain Present Denied Pain M4 PT-IP Mobility and Gait Start: 04/07/20 09:43 Freq: NEEDED Status: Active Protocol: Document 04/08/20 11:11 KS (Rec: 04/08/20 12:50 KS [id number]) PT-Bed Mobility Assessment Supine to Sit Supine to Sit Contact Guard Assistance Sit to Supine Sit to Supine Contact Guard Assistance Scooting Scooting to Edge of Bed Contact Guard Assistance PT-Transfer Assessment Sit to and From Stand Sit to and from Stand Contact Guard Assistance,Use of Upper Extremities Equipment Transfer Assistive Device Gait Belt,Front Wheeled Walker Orthotic/Prosthetic Devices or Brace: No Transfers Transfer Destination Bed Transfer Technique pt ambulated w/ FWW Transfer Ability Level of Assist Contact Guard Assistance,1 Person Assistance,Use of Upper Extremities Comments Mobility Comments Pt in bed upon arrival from therapy. CGA for sup<>sit w/ HOB elevated and CGA for scooting to EOB. Pt sit<>stand w/ FWW CGA and cues and then ambulated ~30 ft around room w / FWW CGA. Decreased stride and foot clearance due to weakness. Patient then reported fatigue and requested to get back into bed. CGA for stand<>sit and sit<>sup. Pt left in bed w/ all needs in reach and bed alarm on. Gait Assessment Gait Gait Assistance Required: Contact Guard Assist Distance (Feet) 30 Assistive Devices Assistive Device Gait Belt,Front Wheeled Walker Orthotic/Prosthetic Devices or Brace: No Gait Deviations General Gait Pattern Antalgic,Decreased Stride Length,Decreased Feet Clearance,Flexed Trunk Factors Limiting Gait Function Factors Limiting Gait Function Decreased Sensation,Decreased Strength,Pain,Poor Balance, Poor Safety Awareness Comments Gait Comments Pt required cues for FWW management, reported fatigue following 30ft ambulation. Stair Climbing Assessment Comments Stair Climbing Comments Not assessed. PT-Balance Assessment Sitting Balance and Reactions Static Sitting Balance Ability Good Dynamic Sitting Balance Ability Good Standing Balance and Reactions Static Standing Balance Ability Fair Dynamic Standing Balance Ability Fair Device Used FWW M5 PT-IP Objective Assessments Start: 04/07/20 09:43 Freq: NEEDED Status: Active Protocol: Document 04/07/20 11:41 AW (Rec: 04/07/20 12:12 AW [id number]) Orientation Orientation/Cognition Level of Alertness Alert Orientation Name,Month,Year,Place, Situation Language Function Ability No Deficits Noted Safety Awareness Decreased Safety Awareness Gross Range of Motion Lower Extremity ROM Assessment Within Functional Limits Strength Lower Extremity Strength Assessment Bilaterally Impaired Hip 4-/5 Knee extension 4+/5; flexion 4-/5 Ankle 4-/5 Sensation Assessment Sensation Gross Sensation Right LE Impaired,Left LE Impaired Light Touch Impaired Comments Sensation Comments Chronic diabetic neuropathy affecting sensation in BLE from feet up to knee joint. M6 PT-IP Treatment Start: 04/07/20 09:43 Freq: NEEDED Status: Active Protocol: Document 04/08/20 11:11 KS (Rec: 04/08/20 12:50 KS [id number]) Physical Therapy Treatment Education Education Provided Safety M7 PT-IP Assessment and Plan Start: 04/07/20 09:43 Freq: NEEDED Status: Active Protocol: Document 04/08/20 11:11 KS (Rec: 04/08/20 12:50 KS [id number]) PT Summary Assessment and Plan Potential Rehabilitation Potential Good Status of Condition at Evaluation Stable Summary Impairments Pain,Strength,Balance, Sensation,Cognition,Bed Mobility,Transfers,Gait, Activity Tolerance Assessment Summary Pt CGA for bed mobility and transfers as well as ambulation. Patient able to tolerate ~30 ft ambulation w/ FWW w/ cues for FWW management . Following 30 ft pt reported increased fatigue and requested to get back into bed to rest. Anticipating patient will be able to return to [facility] with increased assistance. HH to improve functional mobility and tolerance for activity. Goals Bed Mobility Goal Independent Transfer Goal Independent,Front Wheeled Walker Gait Goal Independent,Front Wheel Walker Gait Distance 50 Other Goals - progress gait to SBA with FWW 200 feet Days to Meet Goals 5 Frequency of Treatment Frequency Of Treatment Once a Day Treatment Plan Physical Therapy Treatment Plan Bed Mobility Training,Transfer Training,Gait Training, Therapeutic Exercise,Balance Retraining,Discharge Planning, Hot or Cold Pack,Neuromuscular Re-ed Other Recommendations and Next Treatment gait training with FWW, Focus suggest 5 time sit to stand for baseline Recommendations To Nursing Amount of Assist Needed 1 Person Assist Discharge Recommendations PT Discharge Recommendations Home with Assistance,Home Health Other Discharge Recommendations return to [facility]; possibly depending on progress Transportation Needs at Discharge Private Vehicle
[2020-04-08] MEDS: cefUROXime 250 MG TABLET 500 MG PO (11:56)
--- NOTE | 2020-04-08 14:13 | CM.DPNOTE ---
DCP Cont According to Dr Kelly, DC expected Saturday, home to [facility] w/ HH RN/PT/OT/CUTTER DOWN through [facility] . Patient has early skin breakdown on her coccyx, acute care nursing staff monitoring closely, RN to follow at [facility] for wound care Placed call to Kaylee at [facility] P# [phone] F# [phone], alerted her that DC expected Saturday, then faxed updated clinical packet to include therapy notes and dietary consult note. Placed call to dtr Pati to review DCP. Pati appreciative for dietary consult and agreeable to her mom's DC home Saturday, back to [facility], HH through [facility] . This SECURITY DOOR INSTALLER encouraged Pati to consider increasing assist for her mom at [facility] and Pati agreed she was likely to pay for additional services soon. Spoke w/ channel process supervisor Marleen Krishnan this morning ; she explained patient seems to be experiencing short term memory loss and would likely eat more consistently w/additional cueing and structure around mealtimes. According to dtr Pati, meals are delivered to patient's room, however ,no encouragement or tracking is done of patient's intake. Plan: DC Saturday, back to [facility] via family vehicle. [facility] will appreciate signed medication list and DC Summary faxed to # [phone] upon DC, [facility] will also request DC Summary be faxed. [facility] RN needed for ongoing wound care JW
[2020-04-08 15:17] VITALS: BP 110/53; PULSE 74; RESP 16; TEMP 36.7; O2SAT 96
[2020-04-08] MEDS: cefUROXime 250 MG TABLET PO (21:52)
[2020-04-08 23:36] VITALS: BP 146/68; PULSE 71; RESP 16; TEMP 37.2; O2SAT 100
--- NOTE | 2020-04-09 01:33 | PC.NURSE ---
Urinary frequency noted & voiding only 25 cc, bladder scanned earlier showing 44 cc PVR. Will cont. POC & monitor.
[2020-04-09] MEDS: LEVOTHYROXINE 50 MCG TABLET PO (05:07)
[2020-04-09] MEDS: CODEINE/ACETAMINOPHEN 30/300 TABLET 1 TAB PO ×2 (05:14→12:54)
--- NOTE | 2020-04-09 05:21 | PC.NURSE ---
C/O left hip pain requested T3, 1 tab. admin. Did not sleep well last night up to the BSC numerous times. Will cont. POC & monitor.
[2020-04-09 07:45] VITALS: BP 131/72; PULSE 86; RESP 18; TEMP 36.4; O2SAT 100
--- NOTE | 2020-04-09 09:15 | PT.IPTN ---
Physical Therapy Treatment Note M2 PT-IP Current Condition Start: 04/07/20 09:43 Freq: NEEDED Status: Active Protocol: Document 04/07/20 11:41 AW (Rec: 04/07/20 12:12 AW [id number]) Physical Therapy Current Condition Current Condition Evaluation Date 04/07/20 Treatment Diagnosis UTI, AMS, difficulty in walking Onset Date 04/06/20 Precautions Other Precautions BMI 18, history of falls M3 PT-IP Subjective Start: 04/07/20 09:43 Freq: NEEDED Status: Active Protocol: Document 04/09/20 09:15 AB (Rec: 04/09/20 11:15 AB [id number]) Subjective Physical Therapy Visit Type Type Treatment Note Visit Start Time 09:15 Visit Stop Time 09:30 Total Visit Minutes 15 Number of BINGO MANAGER Visits 0 Physical Therapy Visit Comments Patient Comments agreeable to do PT M4 PT-IP Mobility and Gait Start: 04/07/20 09:43 Freq: NEEDED Status: Active Protocol: Document 04/09/20 09:15 AB (Rec: 04/09/20 11:15 AB [id number]) PT-Bed Mobility Assessment Supine to Sit Supine to Sit Standby Assistance Sit to Supine Sit to Supine Standby Assistance PT-Transfer Assessment Sit to and From Stand Sit to and from Stand Standby Assistance Equipment Transfer Assistive Device Gait Belt,Front Wheeled Walker Orthotic/Prosthetic Devices or Brace: No Transfers Transfer Destination Bed,Toilet Transfer Technique Stand Step Pivot Transfer Ability Level of Assist Standby Assistance Comments Mobility Comments found pt getting up with NAC to use bedside commode. PT took over. pt completed supine to sit SBA and completed step transfer using FWW SBA. completed toileting requiring assist with brief management. ambulated in room using FWW 30 ft SBA. requested to go back to bed and completed sit to supine SBA. positioned in bed. call light and table placed within reach. pt easily gets tired but stated that she has been getting up to use the toilet often and nurse confirmed. Gait Assessment Gait Gait Assistance Required: Standby Assistance Distance (Feet) 30 Able to Maintain Weight Bearing Status Yes During Gait Assistive Devices Assistive Device Gait Belt,Front Wheeled Walker Orthotic/Prosthetic Devices or Brace: No Gait Deviations General Gait Pattern Decreased Stride Length, Decreased Feet Clearance, Flexed Trunk Factors Limiting Gait Function Factors Limiting Gait Function Decreased Activity Tolerance, Decreased Strength,Difficulty Following Directions,Pain,Poor Balance,Poor Safety Awareness M5 PT-IP Objective Assessments Start: 04/07/20 09:43 Freq: NEEDED Status: Active Protocol: Document 04/07/20 11:41 AW (Rec: 04/07/20 12:12 AW [id number]) Orientation Orientation/Cognition Level of Alertness Alert Orientation Name,Month,Year,Place, Situation Language Function Ability No Deficits Noted Safety Awareness Decreased Safety Awareness Gross Range of Motion Lower Extremity ROM Assessment Within Functional Limits Strength Lower Extremity Strength Assessment Bilaterally Impaired Hip 4-/5 Knee extension 4+/5; flexion 4-/5 Ankle 4-/5 Sensation Assessment Sensation Gross Sensation Right LE Impaired,Left LE Impaired Light Touch Impaired Comments Sensation Comments Chronic diabetic neuropathy affecting sensation in BLE from feet up to knee joint. M6 PT-IP Treatment Start: 04/07/20 09:43 Freq: NEEDED Status: Active Protocol: Document 04/09/20 09:15 AB (Rec: 04/09/20 11:15 AB [id number]) Physical Therapy Treatment Education Education Provided Safety M7 PT-IP Assessment and Plan Start: 04/07/20 09:43 Freq: NEEDED Status: Active Protocol: Document 04/09/20 09:15 AB (Rec: 04/09/20 11:15 AB [id number]) PT Summary Assessment and Plan Potential Rehabilitation Potential Good Summary Impairments Pain,ROM,Strength,Balance, Coordination,Sensation,Tone, Cognition,Bed Mobility, Transfers,Gait,Activity Tolerance Progress Towards Goals Slow Progress due to Activity Tolerance Assessment Summary pt progressing with mobility but continues to have decrease activity tolerance. pt lives at [facility]. pt will benefit from HHPT to improve overal strength. pt may go home when medically stable. Goals Bed Mobility Goal Independent Transfer Goal Independent,Front Wheeled Walker Gait Goal Independent,Front Wheel Walker Gait Distance 50 Other Goals - progress gait to SBA with FWW 200 feet Days to Meet Goals 5 Frequency of Treatment Frequency Of Treatment Once a Day Treatment Plan Physical Therapy Treatment Plan Bed Mobility Training,Transfer Training,Gait Training, Therapeutic Exercise,Balance Retraining,Discharge Planning, Hot or Cold Pack,Neuromuscular Re-ed Recommendations To Nursing Amount of Assist Needed 1 Person Assist Discharge Recommendations PT Discharge Recommendations Home with Assistance,Home Health Transportation Needs at Discharge Private Vehicle
[2020-04-09] MEDS: ATORVASTATIN 20 MG TABLET 40 MG PO (09:23)
[2020-04-09] MEDS: cefUROXime 250 MG TABLET PO (09:23)
[2020-04-09] MEDS: FAMOTIDINE 20 MG TABLET 10 MG PO (09:23)
[2020-04-09] MEDS: SODIUM CHLORIDE 0.9% FLUSH 10 ML IV (09:24)
[2020-04-09] MEDS: DOCUSATE 100 MG CAPSULE PO (09:24)
[2020-04-09] MEDS: FERROUS SULFATE 325 MG TABLET PO (09:24)
[2020-04-09] MEDS: ENOXAPARIN 30 MG/0.3 ML SYRINGE SUBCUT (09:28)
--- NOTE | 2020-04-09 10:37 | P.DS_ITS ---
History of Present Illness History of Present Illness Date Patient Seen: 04/09/20 Time Patient Seen: 10:38 Date of Onset of Symptoms: 03/26/20 Chief complaint: sent by Dr Kelly Discharge Providers Provider Date of admission: 04/06/20 19:05 Discharge Date: 04/09/20 Primary care physician: Kurt Kelly MD Consults: 04/07/20 08:07 Consult to Physical Therapy Evaluate & Treat Comment: Physician Instructions: Evaluate and Treat 04/07/20 12:02 Consult to Dietitian, Adult Routine Comment: Reason For Exam: weight loss/diabetes 04/08/20 10:12 Consult to Home Health Routine Comment: Reason For Exam: Home Health upon DC Discharge provider: Masha Friedman MD Summary Hospital Course Discharge Diagnosis: E coli urinary tract infection with sepsis Leukocytosis related to UTI Mental status changes secondary to UTI Hyperkalemia Hyperkalemia Acute dehydration Weight loss of unclear etiology Hyperlipidemia Hypothyroidism without current issues Hospital Course: Patient was noted to have a significant weight loss of approximately 8 lb over the last 2 weeks. She was complaining of early satiety and not really taking in much by mouth. She developed confusion and was brought for evaluation was felt to have UTI with sepsis syndrome and was admitted to the hospital for the same. Urine culture showed E coli that was sensitive to her cu rrent antibiotics. She was treated with IV antibiotics and IV fluids and her hyperkalemia and hyper calcemia improved and IV fluids were discontinued. Patient was put on oral antibiotics and patient was discharged back to assisted care facility with home health for PT, OT and nursing to help with medications on hospital day 3. After 24 hours on oral antibiotics without worsening in her symptoms. She will continue her same outpatient medications including iron, Colace, levothyroxine, atorvastatin, vitamin-C, as needed Tylenol She will be discharged home on cefuroxime 250 mg twice daily for 7 more days She will follow-up with Dr. Kelly 40 minutes was spent with patient, consulting with long term care social worker, patient's daughter, nursing, reviewing the chart and coordinating discharge Status at Discharge Cognitive/behavioral status at discharge: at baseline, oriented Functional status at discharge: uses cane/walker Overall status at discharge: patient is progressing back to baseline Exam Vital Signs (past 8 hours): - 04/09/20 07:45 Temperature 97.5 F L Pulse Rate 86 Respiratory Rate 18 Blood Pressure 131/72 Pulse Oximetry 100 Oxygen Delivery Method Room Air Oxygen Flow Rate 0 Narrative Exam Narrative: Patient is alert and oriented x3 but is repetitive on story telling Afebrile, vital signs are stable Chronic alopecia, diffusely HEENT: Unremarkable Neck: Supple without adenopathy Chest: Clear to auscultation without wheezes rhonchi or crackles Cor: Regular rate and rhythm without murmur Abdomen: Positive bowel sounds, soft, nontender, nondistended, no hepatosplenomegaly Extremities no edema, pulses intact Neurologic exam nonfocal Objective Labs Result Diagrams: 04/06/20 15:50 04/08/20 06:11 [facility] Medical History Acquired hypothyroidism (05/23/11) Aortic stenosis (~09/2016) Chronic pain Controlled diabetes mellitus (10/13/13) Diverticular disease Elevated ferritin level Elevated serum GGT level Esophageal diverticulum, acquired (05/23/11) Essential hypertension (05/23/11) Hyperlipidemia Hyperparathyroidism (10/13/13) 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) Idiopathic peripheral neuropathy (05/21/13) Lumbar canal stenosis Lumbar facet arthropathy Osteoarthritis involving multiple joints on both sides of body Raynaud's phenomenon (05/23/11) Type 2 diabetes mellitus with hyperglycemia (11/18/12) Type 2 diabetes mellitus with microalbuminuria, without long-term current use of insulin (11/17/15) Surgical History History of cataract removal with insertion of prosthetic lens S/P total abdominal hysterectomy and bilateral salpingo-oophorectomy Social History household members: caregiver Smoking Status: Never smoker alcohol intake: current Discharge Assessment & Plan Assessment and Plan Assessment: E coli UTI with sepsis, improved with IV antibiotics and now stable on oral antibiotics, cefuroxime times 24 hours Mental status changes secondary to UTI Leukocytosis Hyperkalemia, improved Hypercalcemia, improved Hypothyroidism, stable Acute dehydration, improved Weight loss of unclear etiology Hyperlipidemia stable Plan of Treatment: Discharge back to assisted care facility with home health PT, OT, nursing to assist with medications and home health aide Will be discharged home on same home medications and in addition to this cefuroxime 250 mg twice daily for 7 days Discharge follow-up with Dr. Kelly Discharge Plan Discharge Plan Patient Disposition: Home Health Service Other facility: [facility] Discharge orders & Medications Prescriptions: New cefuroxime axetil 250 mg Tablet 250 mg PO BID 7 Days Qty: 14 RF: 0 levothyroxine [Synthroid] 50 mcg Tablet 50 mcg PO 0600 60 Days Qty: 60 RF: 0 ferrous sulfate 325 mg (65 mg iron) Tablet 325 mg PO BID Qty: 60 RF: 0 docusate sodium [DOK] 100 mg Capsule 100 mg PO DAILY Qty: 30 RF: 0 Continued clobetasol [Temovate] 0.05 % cream 1 applictn TOP BIDP PRN (Reason: rash) Qty: 45 RF: 11 metformin [Glucophage] 500 mg tablet 500 mg PO BID Qty: 60 RF: 11 atorvastatin 40 mg tablet 40 mg PO QDAY Qty: 90 RF: 3 levothyroxine [Synthroid] 50 mcg tablet 50 mcg PO QAM Qty: 90 RF: 3 estradiol [Estrace] 0.01 % (0.1 mg/gram) cream 0.1 % VAG DAILY Qty: 42.5 RF: 1 famotidine 20 mg tablet 10 mg PO BID Qty: 90 RF: 1 ascorbate calcium (vitamin C) 500 mg tablet 500 mg PO BID Qty: 180 RF: 1 acetaminophen [Tylenol] 325 mg tablet 650 mg PO Q4-6H PRN (Reason: fever or pain) Qty: 180 RF: 1 triamcinolone acetonide 0.1 % cream 1 applictn TOP QID Qty: 80 RF: 0 Discontinued ferrous sulfate 325 mg (65 mg iron) tablet 325 mg PO BID Qty: 180 RF: 1 Follow up/Referrals: Kurt Kelly MD [Primary Care Provider] - (PLEASE CALL DR KELLY' OFFICE TO SCHEDULE YOUR HOSPITAL FOLLOW UP VISIT.) Diet/Activity/Treatments Diet: Carb-consistent/Diabetic Other treatments: home health PT, OT, nursing for medication assistance Visit Report/Discharge Packet Instructions: DI for Urinary Tract Infection (UTI), How to Prevent Falls, Cefuroxime (By mouth) Discharge Data Primary Care Provider: Kurt Kelly Attending Provider: Kurt Kelly Quality VTE Deep Vein Thrombosis/Pulmonary Embolism Present on Admission: No
--- NOTE | 2020-04-09 10:44 | CM.DPC ---
DCP Discharge [facility] with HH Per MD, pt is medically stable to d/c back to [facility] Assisted today via Dtr POV and HH. KARY updated RN on need for signed med rec and any hard copy scripts and HH along with updated rapid COVID and RN kindly placing order and obtaining. KARY called [facility] cardiology technician Larisa at [phone] and updated on pt d/c and confirmed she can return via Dtr POV once updated COVID and d/c packet completed and faxed for their review. Dtr can merchandise pickup/receiving associate any new meds unless hard scripts for any new medications done and then [facility] can fill. KARY called [facility] and updated on pt discharge back to [facility] today and faxed completed d/c summary and orders to [facility]. Dtr is bedside and agreeable with d/c plan for today and still providing transport for pt back home. Plan: Patient to d/c back to [facility] today via Dtr POV and new [facility] to follow. NANCY Covington
[2020-04-09 11:41] LABS: COVID19 -Nasal RAPID Negative (Negative)
--- NOTE | 2020-04-09 15:01 | PC.NURSE ---
Discharge instructions reviewed with patient and her daughter Pati. They state understanding and have no further questions or concerns. Patient declines shower/bath prior to leaving. IV dc'd intact. Report called to Miley JONES in [facility]. Patient escorted out via wheelchair with all her belongings and paperwork.
--- NOTE | 2020-04-10 12:42 | CM.DPNOTE ---
DCP continued: Received call from Esther at [facility]. Esther reports that she needs clinical information faxed to secure HH referral. Obtained requested information and faxed to [phone]. No completed f2F found. Esther aware and will attempt to obtain from provider and/or call [facility] tomorrow 04-11-20. P: Patient discharge home with on 04-09-2020. Information faxed to HH agency per their request. NANCY Fernandez
== END 2020-04-09 13:20 | disposition home health service (06) ==
LOC: ED 19:04 → AC 19:05
PROVIDERS: Emergency Medicine; Family Medicine; Admitting Provider Family Medicine; Emergency Provider Emergency Medicine; PCP Internal Medicine; Referring Provider Internal Medicine; Visit Provider Internal Medicine
DX: N39.0 Urinary tract infection, site not specified (principal); B96.20 Unspecified Escherichia coli [E. coli] as the cause of diseases classified elsewhere; R53.1 Weakness; R41.0 Disorientation, unspecified; R53.83 Other fatigue; E86.0 Dehydration; L89.159 Pressure ulcer of sacral region, unspecified stage; E87.6 Hypokalemia; E83.52 Hypercalcemia; R63.4 Abnormal weight loss; E11.9 Type 2 diabetes mellitus without complications; E78.5 Hyperlipidemia, unspecified; E03.9 Hypothyroidism, unspecified; Z79.84 Long term (current) use of oral hypoglycemic drugs; Z68.1 Body mass index [BMI] 19.9 or less, adult; Z20.822 Contact with and (suspected) exposure to COVID-19
CPT/HCPCS: 36415; 71045; 80048; 80053; 81001; 82962; 83605; 83690; 84145; 85025; 85610; 85730; 87040; 87077; 87086; 87186; 87635; 93005; 96361; 96365; 96366; 96372; 97161; 97530; 99219; 99225; 99283; 99284; C9803; G0378; A9270; J1650